=== PATIENT | female | born 1960 | race Caucasian/White ===

== ENCOUNTER 2018-12-10 20:44 | Inpatient (IN) ==
[2018-12-10] MEDS ORDERED: CARDIZEM IV ONE ×2 (21:11→21:23)
[2018-12-10] MEDS ORDERED: NS 500 ML IV ONE (21:17)
[2018-12-10] MEDS ORDERED: NS 500 ML ONE (21:19)
[2018-12-10 21:26] LABS: BASO# 0.04 X1000 (0.0-0.2); BASO% 0.4 % (0.0-0.8); EOS% 2.1 % (0.0-10.0); HEMATOCRIT 50.3 % (37.0-47.0); HEMOGLOBIN 16.6 g/dL (12.0-16.0); IMM GRAN# 0.03 X1000 (0.0-0.04); IMM GRAN% 0.3 % (0.0-0.5); LYMPH# 3.44 X1000 (1.2-3.4); LYMPH% 36.6 % (20.5-51.1); MCH 31.7 PG (27-31); MCV 96.2 FL (81-99); MONO# 0.77 X1000 (0.11-0.59); MONO% 8.2 % (1.7-9.3); MPV 10.3 FL (7.4-10.4); NEUT# 4.93 X1000 (1.4-6.5); NEUT% 52.4 % (42.2-75.2); PLT 273 X1000 (130-400); RBC 5.23 XMIL (4.2-5.4); RDW 13.4 % (11.5-14.5); WBC 9.41 X1000 (4.8-10.8)
[2018-12-10 21:34] LABS: INR 0.88; PROTIME 12.7 Seconds (11.0-16.0)
[2018-12-10 21:35] LABS: PTT 28.8 Seconds (22.3-41.8)
[2018-12-10 21:37] LABS: D-DIMER < 0.27 ug/mLFEU (0.0-0.52)
[2018-12-10] MEDS ORDERED: CARDIZEM 125 MG in NS 100 ML IV SCH (21:45)
--- NOTE | 2018-12-10 21:49 | Diag Imaging Result Doc PS360 ---
EXAM: CHEST-PORTABLE INDICATION: chest pain TECHNIQUE: One view COMPARISON: 12/01/2018 FINDINGS: The central vasculature is prominent indicating pulmonary venous congestion. This is very similar to the previous study. No well-defined airspace infiltrate is appreciated, otherwise. There is no discrete pleural fluid collection or pneumothorax. There is stable mild cardiomegaly. IMPRESSION: Mild cardiomegaly and suggestion of pulmonary venous congestion that is very similar to the previous study. Electronically signed by Omar Corral 12/10/2018 9:46 PM
[2018-12-10 21:57] LABS: AGAP 16; ALB/GLOB RATIO 1.4; ALBUMIN 4.2 g/dL (3.5-5.0); ALKALINE PHOSPHATASE 93 U/L (32-104); BUN 12 mg/dL (8-22); CALCIUM 9.2 mg/dL (8.8-10.2); CHLORIDE 101 mmol/L (98-107); COSMO 282; CREATININE 0.8 mg/dL (0.5-0.9); ESTIMATED GFR > 60; GLUCOSE 152 mg/dL (70-104); GOT 17 U/L (10-30); GPT 28 U/L (10-36); MAGNESIUM 1.5 mg/dL (1.5-2.7); POTASSIUM 4.1 mmol/L (3.5-5.1); SODIUM 140 mmol/L (136-145); TCO2 23 mmol/L (25-35); TOTAL BILIRUBIN 0.52 mg/dL (0.20-1.00); TOTAL PROTEIN 7.2 g/dL (6.3-8.3)
[2018-12-10 22:43] LABS: URINE SOURCE CLEAN CATCH
[2018-12-10 22:46] LABS: BILIRUBIN URINE NEGATIVE (NEGATIVE); BLOOD URINE NEGATIVE (NEGATIVE); COLOR YELLOW; GLUCOSE URINE NEGATIVE (NEGATIVE); KETONE URINE 10 mg/dL (NEGATIVE); LEUKOCYTES URINE SMALL (NEGATIVE); NITRITE URINE NEGATIVE (NEGATIVE); PROTEIN URINE NEGATIVE (NEGATIVE); TURBIDITY URINE CLEAR (CLEAR); UROBILINOGEN URINE NORMAL (NORMAL)
[2018-12-10 22:47] LABS: UR EPITHELIAL CELLS <10 /HPF (<10); URINE BACTERIA 4+ /HPF; URINE RBC <10 /HPF (<10)
--- NOTE | 2018-12-11 01:32 | PROVIDER DOCUMENTATION ---
This chart was entered by Apple Harvey Scribe, acting as scribe for Wayne Goff MD. HPI-Chest Pain - General Stated Complaint: AFIB Time Seen by Provider: 12/10/18 20:56 Source: patient Allergies/Adverse Reactions: Patient Allergies Allergy/AdvReac Type Severity Reaction Status Date / Time No Known Allergies Allergy Verified 12/01/18 15:16 Home Medications: Home Medication List Medication Instructions Recorded Confirmed Last Taken Type Atenolol 25 mg PO BID #60 tab 12/01/18 Unknown Rx - History of Present Illness-CP Nature of Presenting Problem: pt is a 58 yr old female presenting via EMS with complaint of sudden onset chest pain and palpitations. pt denies shortness of brearh, nausea or vomiting. pt reports recent dx as Afib, no current medications for that. pt denies CAD. Location: reports: central Chest Pain Radiation: reports: no radiation Quality of Pain: reports: tightness Severity in ED: moderate Onset/Duration: just prior to arrival Timing: improving Context/Activities at Onset: reports: recent emotional stress, eating Modifying Factors: improves with: rest (improved pain) Associated Symptoms: denies: nausea, shortness of breath Nitro Today/Relief: no nitro taken today Aspirin Treatment Today: no aspirin today Prior Chest Pain/Cardiac Workup: reports: no prior chest pain Similar Symptoms Previously?: No Recently Seen Here or By Another Healthcare Provider: No Review of Systems - Adult - REVIEW OF SYSTEMS - ADULT Constitutional: denies: fatique Eyes: denies: blurred vision, double vision Ears, Nose, Mouth & Throat: reports: no symptoms reported Cardiovascular: reports: chest pain, palpitations. denies: syncope Respiratory: denies: cough, shortness of breath Gastrointestinal: denies: abdominal pain, diarrhea, nausea, vomiting Genitourinary: reports: no symptoms reported Musculoskeletal: reports: no symptoms reported Integumentary: reports: no symptoms reported Neurological: reports: no symptoms reported Psychiatric: reports: no symptoms reported Endocrine: reports: no symptoms reported Hematologic/Lymphatic: reports: no symptoms reported Allergic/Immunologic: reports: no symptoms reported All Other Systems: Reviewed and Negative Past History - Adult - PAST MEDICAL HISTORY-ADULT Review of Records: reports: Old Records Reviewed, Nursing Assessment Review, Medications Reviewed, Social history reviewed & non-contributory. Major Childhood Illnesses: reports: denies history Cardiovascular: reports: denies history Respiratory: reports: denies history Gastrointestinal: reports: denies history Obstetrical/Gynecological: reports: denies history Genitourinary: reports: denies history Musculoskeletal: reports: denies history Neurological: reports: denies history Endocrine/Immune: reports: denies history Other Conditions: reports: denies history - IMMUNIZATION STATUS Childhood Immunizations: See Nurse Assessment Flu Vaccine: See Nurse Assessment - FAMILY HISTORY Family History: reviewed, not pertinent - SOCIAL HISTORY Smoking: cigarettes Provider spent 3-5 mins advising pt. on dangers of tobacco.: Discussed manners to quit use, and f/u contacts for add'l counseling. Substance Use: denies Living Situation: family Physical Exam-General - PHYSICAL EXAM-ADULT Initial Vital Signs Reviewed: Yes - CONSTITUTIONAL General Appearance: alert, other (mild discomfort) - EYES Eyes: PERRL/EOMI - HEAD, EARS, NOSE, MOUTH & THROAT HENMT: normocephalic/atraumatic, moist mucous membranes - NECK Neck: non-tender, full range of motion, supple, normal inspection - RESPIRATORY Respiratory: chest non-tender, lungs clear, no pleuratic chest pain, no respiratory distress, decreased breath sounds - CARDIOVASCULAR Cardiovascular: normal peripheral pulses, tachycardia, irregularly irregular - GASTROINTESTINAL (ABDOMEN) Abdominal Exam: normal bowel sounds, non tender, soft - LYMPHATIC Lymphatic: no adenopathy - MUSCULOSKELETAL Back Exam: normal inspection, no CVA tenderness, no vertebral tenderness Extremity: normal range of motion, non-tender, normal gait, normal inspection - SKIN Integumentary: normal color, normal turgor, warm/dry - NEUROLOGIC Neurologic: grossly normal, no motor/sensory deficits - PSYCHIATRIC Psych/Mental Status: normal mood/affect, normal thought content, normal thought process, oriented x 3 - HEART Score HEART Score: History: Slightly Suspicious HEART Score: ECG: Non-Specific Repolarization Disturbance/LBBB/PM HEART Score: Age: 45-65 Years HEART Score: Risk Factors for Atherosclerotic Disease: 1 or 2 Risk Factors HEART Score: Troponin: < or = Normal Limit Total HEART Score:: 3 Progress - PLAN OF CARE/RESULTS Progress/Plan/Lab Results: Vital Signs - 8 hr 12/10/18 21:27 12/10/18 21:30 12/10/18 21:40 Temperature 97.7 F Pulse Rate 168 H 83 124 H Respiratory Rate 25 H 22 22 Blood Pressure 121/91 O2 Sat by Pulse Oximetry 93 L 94 L 98 12/10/18 21:50 12/10/18 22:00 12/10/18 22:10 Temperature Pulse Rate 123 H 152 H 150 H Respiratory Rate 20 25 H 20 Blood Pressure O2 Sat by Pulse Oximetry 98 97 96 12/10/18 22:20 12/10/18 22:30 12/10/18 22:40 Temperature Pulse Rate 146 H 79 78 Respiratory Rate 18 23 20 Blood Pressure 148/67 O2 Sat by Pulse Oximetry 96 98 96 12/11/18 00:02 Temperature 98.0 F Pulse Rate 73 Respiratory Rate 16 Blood Pressure 148/67 O2 Sat by Pulse Oximetry 97 Laboratory Results - last 24 hr 12/10/18 12/10/18 12/10/18 21:12 21:12 21:12 WBC RBC Hgb Hct MCV MCH MCHC RDW Std Deviation Plt Count MPV Immature Gran % (Auto) Neut % (Auto) Lymph % (Auto) [place] % (Auto) Eos % (Auto) Baso % (Auto) Immature Gran # (Auto) Neut # (Auto) Lymph # (Auto) [place] # (Auto) Eos # (Auto) Baso # (Auto) PT 12.7 INR 0.88 PTT (Actin FS) 28.8 D-Dimer, Quantitative < 0.27 Sodium 140 Potassium 4.1 Chloride 101 Carbon Dioxide 23 L Anion Gap 16 BUN 12 Creatinine 0.8 Estimated GFR/1.73 m2 > 60 BUN/Creatinine Ratio 15 Glucose 152 H Calculated Osmolality 282 Calcium 9.2 Magnesium 1.5 Total Bilirubin 0.52 AST 17 ALT 28 Alkaline Phosphatase 93 Creatine Kinase Troponin T Sog-Q-Ffcncuvezxi Pept 395 H Total Protein 7.2 Albumin 4.2 Globulin 3.0 Albumin/Globulin Ratio 1.4 Urine Source Urine Color Urine Turbidity Urine pH Ur Specific [place] Urine Protein Ur Glucose (Stick) Ur Ketones (Stick) Urine Blood Urine Nitrite Urine Bilirubin Urobilinogen Dipstick Urine Leukocytes Urine WBC (Auto) Urine RBC (Auto) U Epithel Cells (Auto) Urine Bacteria (Auto) 12/10/18 12/10/18 12/10/18 21:12 21:12 21:12 WBC 9.41 RBC 5.23 Hgb 16.6 H Hct 50.3 H MCV 96.2 MCH 31.7 H MCHC 33.0 RDW Std Deviation 13.4 Plt Count 273 MPV 10.3 Immature Gran % (Auto) 0.3 Neut % (Auto) 52.4 Lymph % (Auto) 36.6 [place] % (Auto) 8.2 Eos % (Auto) 2.1 Baso % (Auto) 0.4 Immature Gran # (Auto) 0.03 Neut # (Auto) 4.93 Lymph # (Auto) 3.44 H [place] # (Auto) 0.77 H Eos # (Auto) 0.20 Baso # (Auto) 0.04 PT INR PTT (Actin FS) D-Dimer, Quantitative Sodium Potassium Chloride Carbon Dioxide Anion Gap BUN Creatinine Estimated GFR/1.73 m2 BUN/Creatinine Ratio Glucose Calculated Osmolality Calcium Magnesium Total Bilirubin AST ALT Alkaline Phosphatase Creatine Kinase 81 Troponin T < 0.010 Evs-C-Bledydlqtfk Pept Total Protein Albumin Globulin Albumin/Globulin Ratio Urine Source Urine Color Urine Turbidity Urine pH Ur Specific [place] Urine Protein Ur Glucose (Stick) Ur Ketones (Stick) Urine Blood Urine Nitrite Urine Bilirubin Urobilinogen Dipstick Urine Leukocytes Urine WBC (Auto) Urine RBC (Auto) U Epithel Cells (Auto) Urine Bacteria (Auto) 12/10/18 22:35 WBC RBC Hgb Hct MCV MCH MCHC RDW Std Deviation Plt Count MPV Immature Gran % (Auto) Neut % (Auto) Lymph % (Auto) [place] % (Auto) Eos % (Auto) Baso % (Auto) Immature Gran # (Auto) Neut # (Auto) Lymph # (Auto) [place] # (Auto) Eos # (Auto) Baso # (Auto) PT INR PTT (Actin FS) D-Dimer, Quantitative Sodium Potassium Chloride Carbon Dioxide Anion Gap BUN Creatinine Estimated GFR/1.73 m2 BUN/Creatinine Ratio Glucose Calculated Osmolality Calcium Magnesium Total Bilirubin AST ALT Alkaline Phosphatase Creatine Kinase Troponin T Zlm-C-Zknhatrujep Pept Total Protein Albumin Globulin Albumin/Globulin Ratio Urine Source CLEAN CATCH Urine Color YELLOW Urine Turbidity CLEAR Urine pH 6.0 Ur Specific [place] 1.000 Urine Protein NEGATIVE Ur Glucose (Stick) NEGATIVE Ur Ketones (Stick) 10 A Urine Blood NEGATIVE Urine Nitrite NEGATIVE Urine Bilirubin NEGATIVE Urobilinogen Dipstick NORMAL Urine Leukocytes SMALL A Urine WBC (Auto) 10-20 A Urine RBC (Auto) <10 U Epithel Cells (Auto) <10 Urine Bacteria (Auto) 4+ Orders Category Date Time Status CHEST-PORTABLE [RAD] Stat Exams 12/10/18 21:15 Completed CBC WITH ELECTRONIC DIFF [HEME] Stat Lab 12/10/18 21:12 Completed CK PROFILE [SP CHEM] Stat Lab 12/10/18 21:12 Completed COMPREHENSIVE METABOLIC PANEL [CHEM] Stat Lab 12/10/18 21:12 Completed D-DIMER [COAG] Stat Lab 12/10/18 21:12 Completed MAGNESIUM [CHEM] Stat Lab 12/10/18 21:12 Completed PRO B-NATRIURETIC PEPTIDE Stat Lab 12/10/18 21:12 Completed PT [PROTIME WITH INR] [COAG] Stat Lab 12/10/18 21:12 Completed PTT [COAG] Stat Lab 12/10/18 21:12 Completed TROPONIN T Stat Lab 12/10/18 21:12 Completed URINALYSIS W/POSS RFLX CULT [URINALYSIS] Stat Lab 12/10/18 22:35 Completed URINE CULTURE [RM] Routine Lab 12/11/18 00:25 Received 0.9% Sodium Chloride Inj [Ns] 100 ml Med 12/10/18 21:45 Active Diltiazem [Cardizem] 125 mg IV As Directed mls/hr 0.9% Sodium Chloride Inj [Ns] 500 ml Med 12/10/18 21:19 Discontinued .ROUTE As directed 0.9% Sodium Chloride Inj [Ns] 500 ml Med 12/10/18 21:17 Discontinued IV 999 mls/hr Diltiazem [Cardizem] Med 12/10/18 21:11 Discontinued 10 mg IV NOW ONE Diltiazem [Cardizem] Med 12/10/18 21:23 Discontinued 10 mg IV NOW ONE Transfer/Admit Order [TRANSFER] Routine Transfer 12/11/18 00:29 Ordered Result Diagrams: 12/10/18 21:12 12/10/18 21:12 - EKG 1 Time of EKG reading by physician:: 20:58 EKG Read and Signed by:: Wayne Goff EKG Interpretation (*Must complete 3 of following elements*): Abnormal (septal infarct-age undetermined marked st abnormality, possible inferior subendocardial injury) Rate: 162 Rhythm: afib with rvr [place]: normal QRS: normal LA Interval: normal ST Wave: non-specific ST changes 2 Time of EKG reading by physician:: 22:35 EKG Read and Signed by:: Wayne Goff EKG Interpretation (*Must complete 3 of following elements*): Abnormal (poss LAE, septal infarct-age undetermined) Rate: 82 Rhythm: nsr [place]: normal QRS: normal LA Interval: normal ST Wave: normal - CONSULTS/PCP/HOSPITALIST Notification #1 *Consult/PCP/Hospitalist*: Dr. Lim Time Discussed: 12:50 Consult Disposition: Admit Departure - Departure Date of Disposition Decision: 12/11/18 Time of Disposition Decision: 12:50 DIAGNOSIS: Atrial fibrillation with rapid ventricular response Chest pain Qualifiers: Chest pain type: unspecified Qualified Code(s): R07.9 - Chest pain, unspecified Disposition: ADMITTED INPATIENT 09 Certified Medical Emergency: Emergent Condition: Serious Referrals and Follow-Ups: None,PCP [Primary Care Provider] - - Critical Care Note This patient required my direct & personal management of CC.: No Attestation - Physician/ SCOTT Attestation The physician spent face to face time with patient:: Yes Advanced Practice Provider documentation review:: Supervising physician onsite and consulted in the evaluation and care of this patient. The physician did have a face to face encounter with the patient. This chart was documented by the indicated scribe, (Apple Harvey Scribe) and accurately reflects the services I performed and decisions made by [place] shaikh Kofi X., MD, as attested by the provider's signature.
[2018-12-11] MEDS ORDERED: CARDIZEM PO ONE (01:37)
[2018-12-11] MEDS ORDERED: LASIX IV ONE (01:50)
[2018-12-11] MEDS ORDERED: ROCEPHIN 1 GM in NS 50 ML IV SCH (01:50)
[2018-12-11] MEDS ORDERED: ZOFRAN IV PRN (01:50)
[2018-12-11] MEDS ORDERED: TYLENOL PO PRN (01:50)
[2018-12-11 02:39] LABS: HEMOGLOBIN A1C 5.5 % (4.8-6.0)
[2018-12-11] MEDS: CARDIZEM PO SCH ×4 (03:00→23:19)
--- NOTE | 2018-12-11 03:26 | HISTORY AND PHYSICAL ---
PRIMARY CARE PHYSICIAN: None. REASON FOR ADMISSION: Chest pain with palpitations today. HISTORY OF PRESENT ILLNESS: Ms. Alexa Dobson is a 58-year-old woman with past medical history of hypertension; she comes in today after experiencing a third episode of chest pain and palpitations. She said that since mid November, she has had 2 other episodes. The first episode occurred while she was at work, a sharp chest tightness with subsequent palpitations, diaphoresis and nausea, which required her bring brought into our ER. She was given IV Cardizem, which in less than 15 minutes reverted her back to what she says was "a normal rhythm", and she was sent back home that evening. The following week, she had another episode but this time she was awakened from sleep. She was diaphoretic and had palpitations and chest pain. EMS came by to give her adenosine twice and by the time she got to the hospital, she was back in normal rhythm. She was observed for a few hours and sent home. On this occasion, she was walking and developed chest tightness and then stopped walking and tried to catch her breath by taking some deep breaths, and then subsequently developed immediate palpitations that made her light-headed, diaphoretic and nauseous. On arrival to the ER, her heart rate was in the 160 to 180 range. She was given 20 mg of IV Cardizem and now she is back in normal sinus rhythm at 70 beats per minute. The patient says the chest tightness and feeling of nausea has resolved at this point in time. She denies any antecedent leg swelling, PND or orthopnea. No cough, fever or chills. No over-the- counter medication use or herbal remedies. REVIEW OF SYSTEMS: No GI or complaints. No heat intolerance. No weight loss. ALLERGIES: No known allergies. SOCIAL HISTORY: She smokes about 1 pack a day. No immediate plans to quit. She does not drink or use illicit drugs. I did not ask her about her caffeine ingestion. She lives alone. SURGICAL HISTORY: She has had a D C but no other surgical history. FAMILY HISTORY: Only notable for type 2 diabetes mellitus. No heart disease in first-degree relatives. LABORATORY DATA: White count 9000, hemoglobin 16, hematocrit 50, platelets 273, normal differential. BUN 12, creatinine 0.8, glucose 152. Troponin is negative. ProBNP 295. PT and PTT are normal. Urinalysis shows 4+ bacteria with 10-20 white cells, small leukocytes. Chest x-ray did show mild cardiomegaly with pulmonary vascular congestion. EKG on arrival showed A-fib with rate of 162, ST depression in lateral leads and Q waves in septal leads. Post Cardizem EKG showed normal sinus rhythm with the same septal Q waves in V1 and V2. PHYSICAL EXAMINATION: VITAL SIGNS: Blood pressure 140/67, heart rate 72, respiratory rate 16, temperature 98 degrees, oxygen saturation 97% on 2 liters. GENERAL: Obese, middle-aged woman who is alert and oriented to person, place and time with normal mood and affect. HEENT: Head is normocephalic, atraumatic. Eyes: PERRL. EOMI. He is anicteric, not pale. ENT: Oropharynx exam is grossly normal. NECK: Supple. No JVD, carotid bruits, or thyromegaly. CHEST: She has bibasilar crepitations with decreased breath sounds in the bases. CARDIOVASCULAR: First and second heart sounds heard. No gallops, murmurs or rubs. Rhythm is regular. ABDOMEN: Protuberant, soft, with no tenderness. No masses or organomegaly. Bowel sounds are normal. RECTAL EXAM: Deferred at this time. EXTREMITIES: No edema, clubbing or cyanosis. Distal pulses are 1+, symmetrical, regular. NEUROLOGIC: No gross focal deficits appreciated. No tremors. SKIN: Intact with no breakdown. MUSCULOSKELETAL: Grossly normal. ASSESSMENT: 1. Congestive heart failure, type unknown. 2. Atrial fibrillation with rapid ventricular rate. Her [id number] score is greater than 2 or more. 3. Hypertensive heart disease. 4. Hyperglycemia. Rule out type 2 diabetes. 5. Urinary tract infection. PLAN: The patient will be admitted and started on for now p.o. Cardizem for rate control, short acting and probably transition to long-acting Cardizem. Consult Cardiology to see the patient. Echocardiogram will be ordered and per Cardiology, if they want to do further workup to rule out ischemic etiology for this. Serial enzymes have been ordered. Because of patient's [id number] score being 2 or more, I have taken the liberty of starting the patient on Xarelto. Check TSH level. The patient does have evidence of hyperglycemia and a strong family history of type 2 diabetes mellitus. Hemoglobin A1C has been ordered. Lipid panel also has been ordered. Start patient on Rocephin for 3 days and follow cultures. cc: Jamie Lim MD
--- NOTE | 2018-12-11 08:35 | EKG Report ---
Test Performed on : 12/10/2018 8:58:21 PM Test Reason : ED. NO EKG ORDER FOR MUSE Blood Pressure : / mmHG Vent. Rate : 162 BPM Atrial Rate : 174 BPM P-R Int : 000 ms QRS Dur : 076 ms QT Int : 294 ms P-R-T Axes : 000 -17 099 degrees QTc Int : 482 ms Atrial fibrillation. with rapid ventricular response. Septal infarct (cited on or before 17-NOV-2018) Marked ST abnormality, possible inferior subendocardial injury Abnormal ECG When compared with ECG of 01-DEC-2018 14:57, (Unconfirmed) No significant change was found Unconfirmed Result
[2018-12-11 09:21] LABS: BASO# 0.02 X1000 (0.0-0.2); BASO% 0.3 % (0.0-0.8); EOS# 0.08 X1000 (0.0-0.7); HEMATOCRIT 49.9 % (37.0-47.0); LYMPH# 2.35 X1000 (1.2-3.4); LYMPH% 29.7 % (20.5-51.1); MCH 31.1 PG (27-31); MCHC 32.1 g/dL (33-37); MCV 97.1 FL (81-99); MONO# 0.45 X1000 (0.11-0.59); MONO% 5.7 % (1.7-9.3); MPV 10.4 FL (7.4-10.4); NEUT# 5.01 X1000 (1.4-6.5); NEUT% 63.3 % (42.2-75.2); PLT 221 X1000 (130-400); RBC 5.14 XMIL (4.2-5.4); RDW 13.7 % (11.5-14.5); WBC 7.91 X1000 (4.8-10.8)
--- NOTE | 2018-12-11 09:22 | EKG Report ---
Test Performed on : 12/10/2018 10:30:45 PM Test Reason : ED. NO EKG ORDER FOR MUSE Blood Pressure : / mmHG Vent. Rate : 082 BPM Atrial Rate : 082 BPM P-R Int : 148 ms QRS Dur : 076 ms QT Int : 398 ms P-R-T Axes : 055 003 098 degrees QTc Int : 464 ms Normal sinus rhythm. Possible Left atrial enlargement Septal infarct (cited on or before 17-NOV-2018) Abnormal ECG When compared with ECG of 10-DEC-2018 20:58, (Unconfirmed) Sinus rhythm. has replaced Atrial fibrillation. Vent. rate has decreased BY [address] no longer depressed in Inferior leads ST no longer depressed in Anterolateral leads Unconfirmed Result
[2018-12-11 09:58] LABS: CHOLESTEROL 163 mg/dL (0-200); HDL 47 mg/dL (45-65); LDL 94 mg/dL; TRIGLYCERIDES 110 mg/dL (35-135); VLDL 22 mg/dL
[2018-12-11] MEDS: XARELTO PO SCH (10:45)
--- NOTE | 2018-12-11 11:20 | PROGRESS NOTE ---
DATE: 12/11/2018 INTERVAL HISTORY: Ms. Dobson was admitted overnight for paroxysmal atrial fibrillation. However, her heart rate had come under control after intravenous diltiazem, and she was started on p.o. diltiazem. Echocardiogram was done, result is pending. SUBJECTIVE: Patient denies chest pain, shortness of breath, palpitation. She is an active smoker. She has also been started on ceftriaxone for suspected UTI and rivaroxaban for primary seizure prophylaxis currently. OBJECTIVE: Vitals: Temperature of 98, pulse of 73, respiratory rate 18, blood pressure 147/71, saturating 96% on 2 L nasal cannula. General: Does not appear in any acute distress. HEENT: Oral cavity is moist. No pallor, cyanosis, clubbing, or icterus. Lungs: Air entry bilaterally diminished without wheeze, rhonchi, or crackles. Cardiovascular: S1, S2 normal. Regular. No murmur, rub, or gallop. Abdomen: Soft, nontender. No jugular venous distention. Extremities: No lower extremity edema. LABORATORIES: CBC and BMP have been unremarkable except magnesium of 1.7. Her troponins have shown to be 0.026 in the morning time. IMAGING/DIAGNOSTIC DATA: Chest x-ray on admission had mild cardiomegaly suggestive of pulmonary venous congestion similar to previous study. EKG had normal sins rhythm. She did have Q-waves in lead 3. On admission EKG when she had atrial fibrillation with rapid ventricular rate, she has significant lateral and inferior ST-segment depressions. ASSESSMENT AND PLAN: 1. Atrial fibrillation with rapid ventricular rate. Continue p.o. diltiazem. Follow up with echocardiogram result. Her ProBNP was only mildly elevated. CHADS2-VASc score is close to 3 for HTN, CHF and gender. Continue Xarelto which has been started. I discussed benefits vs risk with the patient and she is in agreement. 2. Tobacco abuse. Patient was counseled about smoking cessation. If needed, I will start her on nicotine patch. 3. Suspected acute congestive heart failure. Continue patient on Lasix considering chest x-ray findings plus mild elevation of brain natriuretic peptide. Follow up with echocardiogram results. 4. Pyuria. The patient denies any urinary tract infection related symptoms to me. I will consider discontinuing antibiotics. Plan of care discussed with the patient. All of her questions have been answered. I will transfer patient to routine medical floor instead of [facility]. cc: Dhaval Kirkland MD MTDD
--- NOTE | 2018-12-11 11:29 | EKG Report ---
Test Performed on : 12/11/2018 11:24:49 AM Test Reason : afib Blood Pressure : / mmHG Vent. Rate : 073 BPM Atrial Rate : 073 BPM P-R Int : 152 ms QRS Dur : 074 ms QT Int : 410 ms P-R-T Axes : 057 010 097 degrees QTc Int : 451 ms Normal sinus rhythm. Possible Left atrial enlargement Septal infarct (cited on or before 17-NOV-2018) T wave abnormality, consider lateral ischemia Abnormal ECG When compared with ECG of 10-DEC-2018 22:30, (Unconfirmed) T wave inversion more evident in Lateral leads Unconfirmed Result
[2018-12-11] MEDS: LOPRESSOR PO SCH ×2 (14:55→23:19)
[2018-12-11] MEDS: LASIX IV SCH ×2 (14:58→23:19)
--- NOTE | 2018-12-11 16:12 | ECHO REPORT ---
ORDER DATE: 12/11/2018 INDICATION: Atrial fibrillation. FINDINGS: 1. Right atrium appears normal in size at 3.8 cm. 2. Mild tricuspid regurgitation. 3. Normal RV size and systolic function. 4. Mild pulmonic insufficiency. 5. Normal left atrial size with a dimension of 3.5 cm. 6. No mitral prolapse. Trace mitral regurgitation. 7. Normal LV size, end-diastolic dimension of 4.4 cm. Mild to moderate left ventricular hypertrophy with a posterior and interventricular septal wall thickness 1.4 cm each. Normal LV systolic function. Calculated ejection fraction of 68% with normal wall motion. 8. The aortic valve opens well. No evidence of stenosis or insufficiency. 9. The aorta appears normal in visualized segments. 10. No pericardial effusion seen. 11. Patient appears to be in sinus rhythm during the course of the study. cc: MD Jamie John MD
--- NOTE | 2018-12-11 16:19 | Diag Imaging Result Doc PS360 ---
EXAM: CHEST-2 VIEWS 12/11/2018 HISTORY: CHF TECHNIQUE: PA and lateral COMMENT: The inspiration is better than on 12/10/2018. The lungs are clearer. IMPRESSION: Improved pulmonary edema. Electronically signed by Michael Padron 12/11/2018 4:16 PM
--- NOTE | 2018-12-11 20:32 | CARDIOLOGY CONSULTATION ---
DATE: 12/11/2018 REQUESTED BY: Hospitalist Service. INDICATION: Palpitations, persistent atrial fibrillation. HISTORY: Ms. 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 She stated that for the past 3 weeks or so she has had at least 3 episodes of sudden onset of palpitations. She has presented to the ER on November 17 and again on December 01 because of palpitations. At that time, electrocardiogram on November 17 showed atrial fibrillation with rapid response. They succeeded in converting this to sinus rhythm, and she went home. On December 01, similar situation was found. She was in rapid atrial fibrillation and she converted to sinus rhythm. In fact, they had a nice EKG showing the conversion. The patient was supposed to follow up with a chemistry instructor, but first she needed to make an appointment to see Dr. Angeles. Last night, she was going to work on December 10. She developed palpitations and they will not get any better. She was seen in the ER. They gave her Cardizem. EKG done at 8:58 p.m. showed the atrial fibrillation with rapid response and diffuse ST-T abnormality in the lateral leads with ST elevation in AVR. The patient subsequently has converted at 11:24 in the morning to sinus rhythm and her EKG shows diffuse T-wave abnormality in lateral leads. Her troponin levels have changed from 0.010 to 0.018, and then 0.026. She reported having some heaviness at the time of the palpitations. She is feeling better now, but not completely back to 100%. Her past history is really negative. She has been for the most part in good health. Of note, yesterday her blood pressure was 161/87 at some point and then on November 17 when she was seen in the ER was 188/90. The patient was not aware of having hypertension. SURGICAL HISTORY: She has had a D&C in the past. SOCIAL HISTORY: She is . She has been working at [employer] night shifts for 7 years and before that, she worked night shifts at a previous location. She has been a smoker of half a pack of cigarettes a day for many years. She has 2 daughters ages 40 and 37. She lives by herself. FAMILY HISTORY: Mother suffered diabetes and with colon cancer. A sister has cholelithiasis. ALLERGIES: She is not allergic to any medication. HOME MEDICATIONS: Her home medicines, she is really not taking any home medication. REVIEW OF SYSTEMS: The patient has been really doing for the most part, well. She has difficulty sleeping, she only catches about 6 hours of sleep at night. She has gained weight. Her body mass index is 33.9. She could have a sleep apnea syndrome. Otherwise, no issues besides the 3 bouts of palpitations on ER presentation. PHYSICAL EXAMINATION: Vital Signs: Blood pressure right now she has converted and her vital signs showed a blood pressure of 124/53, temperature 97.3, pulse 56, respirations 25. General: She is awake, alert, in no distress. HEENT: Unremarkable. Chest: Clear to auscultation and percussion. Heart: Heart sounds regular and rhythmic. No gallop or murmur. Abdomen: Obese, nontender. No masses. No hepatomegaly. Extremities: Show good pulses. No peripheral edema. Neurologic: Nonfocal. Moves 4 extremities. IMPRESSION: 1. Patient who presented with chest discomfort and atrial fibrillation rapid response. Abnormal ECG suggestive of subendocardial ischemia. Troponin levels have risen a little bit, although they are not diagnostic for ischemia. Her resting ECG after conversion is abnormal. 2. Obesity. 3. Possible sleep apnea syndrome. 4. Tobacco user. 5. Elevated blood pressure. Probably a case of hypertension. RECOMMENDATION: At this time I have reviewed her echocardiogram. Her ejection fraction is normal. I will suggest to do a myocardial perfusion stress test using a walking Lexiscan protocol in the morning. Based on the results, we will advise her to continue with a beta-bri regimen plus Xarelto and we will follow her at the office. I would suggest to make a referral for sleep studies. Thank you again for the opportunity to participate in her evaluation. cc: Anatoliy Santiago MD [facility]
[2018-12-12] MEDS: LASIX IV SCH ×2 (03:20→14:59)
[2018-12-12] MEDS: LOPRESSOR PO SCH ×7 (04:24→21:33)
[2018-12-12] MEDS: CARDIZEM PO SCH ×3 (04:31→15:59)
[2018-12-12] MEDS ORDERED: LEXISCAN ONE (08:58)
[2018-12-12] MEDS: XARELTO PO SCH ×2 (10:48→10:51)
--- NOTE | 2018-12-12 15:14 | PROGRESS NOTE ---
DATE: 12/12/2018 INTERVAL HISTORY: The patient remains in atrial fibrillation and now rate controlled. Chest pain resolved. No acute events overnight. No new complaints. Denies chest pain, dyspnea, or palpitations. REVIEW OF SYSTEMS: Twelve point review of systems negative except as per interval history. VITAL SIGNS: T-max 98.4 degrees, pulse 72, respirations 22, blood pressure 136/90, O2 saturation 97% on room air. PHYSICAL EXAMINATION: General: No acute distress. Vital Signs: As above. HEENT: Normocephalic, atraumatic. Moist mucous membranes. No cervical adenopathy. Cardiovascular: Irregular rhythm with normal rate. No murmurs noted. Lungs: Largely clear to auscultation bilaterally. No wheezing, rales, or rhonchi noted. Abdomen: Soft, nontender, nondistended. Bowel sounds positive. Extremities: Peripheral pulses intact. No clubbing, cyanosis, or edema. Neurologic: Cranial nerves grossly intact. No focal deficits identified. Psychiatric: Normal mood and affect. Awake, alert, oriented x3. Skin: No new rashes or lesions identified. ASSESSMENT AND PLAN: 1. Atrial fibrillation with rapid ventricular response. Remains rate controlled on diltiazem. Echocardiogram showing normal ejection fraction and no major valvular issues. Continue Xarelto for stroke prophylaxis. Cardiology considering cardioversion. If they elect not to cardiovert, then patient can likely be discharged. 2. Possible acute diastolic congestive heart failure. Patient with mild elevation in B-type natriuretic peptide. Some cardiomegaly and pulmonary venous congestion on initial chest x- ray, although it had not really changed from previous. Chest x-ray did appear to improve with Lasix administration. Echocardiogram shows a normal ejection fraction but may have some mild diastolic heart failure. We will continue intravenous Lasix one more day and then likely discontinue in the morning. 3. Tobacco abuse. Patient counseled on smoking cessation. Patient denied need for a nicotine patch. 4. Asymptomatic bacteriuria. Patient with minimal white cells on urinalysis but no urinary symptoms at all. No fever. No leukocytosis. We will continue to monitor off of antibiotics. 5. Obesity. Patient counseled on diet and exercise. 6. Deep vein thrombosis prophylaxis with Xarelto. 7. Disposition. Likely discharge home tomorrow or Sunday depending on cardiology recommendations and response to possible cardioversion.
--- NOTE | 2018-12-12 20:01 | Diag Imaging Result Document ---
PROCEDURE NAME: MYOCARDIAL PERF SCAN, STR/REST - 12/11/2018 INDICATION: The patient presented with paroxysmal atrial fibrillation, chest discomfort, minimal elevation of troponin level. Coronary heart disease is being evaluated. DESCRIPTION: The patient came in to the nuclear lab for rest images on December 11. She received a rest injection of technetium 99 sestamibi 42.5 mCi. Multiple views of the heart were obtained at rest. Subsequently the patient underwent a walking Lexiscan protocol, and 0.4 mg of Lexiscan were infused. At peak injection he was injected with technetium 99 sestamibi 40.9 mCi. Multiple tomographic views of the heart were obtained following the completion of the exercise protocol. The stress test was done on December 12. SUMMARY OF THE ELECTROCARDIOGRAPHIC PORTION OF THE STUDY: Resting ECG showed sinus rhythm, rate 64 beats per minute, resting blood pressure 135/82. Resting ECG showed nonspecific T-wave flattening. During the protocol the heart rate increased to 100 beats per minute. Blood pressure went up to 162/74. The patient reported no chest pain, shortness of breath or palpitations. The ECG showed no significant changes. Following the completion of the test, heart rate and blood pressure returned back to baseline. In summary, electrocardiographic response to a walking Lexiscan protocol is normal. SUMMARY OF THE MYOCARDIAL PERFUSION PORTION OF THE STUDY: Poststress tomographic views of the left ventricle showed normal homogeneous distribution of radiotracer throughout the entire length of the myocardium. There was no evidence of any poststress defect. The rest images showed normal perfusion. The polar plots revealed the same. No evidence of any inducible ischemia. No myocardial scar. Gated SPECT on the rest images showed an ejection fraction of 79%. The poststress ejection fraction was 70%. This test was done on 2 separate days. Using the myometrix protocol, the poststress ejection fraction was 76%. The rest ejection fraction was 87%. No wall motion abnormality noted. Ventricular volumes are normal. Lung/heart ratio is normal at 0.32 and 0.37 on the stress and rest images. The TID is normal at 0.960. SUMMARY: This study shows: 1. Normal electrocardiographic response to a walking Lexiscan protocol. 2. Normal poststress myocardial perfusion scan. There is no scintigraphic evidence of pharmacologically induced myocardial ischemia. 3. Normal left ventricular systolic function. Ejection fraction estimated at 70% on the poststress images. Clinical correlation recommended. cc: MD Yuliana Trinidad PA MTDD
[2018-12-13] MEDS: LASIX IV SCH ×2 (00:58→14:10)
--- NOTE | 2018-12-13 07:26 | CARDIOLOGY PROGRESS NOTE ---
DATE: 12/12/2018 CHIEF COMPLAINT: Irregular heart beat and chest tightness. SUBJECTIVE: Ms. Dobson is feeling better. She has finished her stress test. She has no complaints. OBJECTIVE: Vital Signs: Blood pressure is 136/61, temperature is 98 degrees, pulse 55, and respirations 14. General: She is awake, alert, and oriented, in no distress. HEENT: Unremarkable. Chest: Clear to auscultation and percussion. Heart: Sounds regular and rhythmic. No gallop or murmur. Abdomen: Nontender. Extremities: Show no edema. Neurologic: Follows commands. Moves all four extremities. BLOOD WORK: Her hemoglobin A1c is 5.5%. Her cholesterol is 163. HDL is 47. LDL 94. Triglycerides are 110. Her myocardial perfusion stress test done today using walking Lexiscan protocol was normal. Her echocardiogram done yesterday was essentially unremarkable. IMPRESSION: 1. Paroxysmal atrial fibrillation. 2. Obesity. 3. Bacteriuria, gram-negative rods. 4. Tobacco user. 5. Suspected sleep apnea syndrome. RECOMMENDATIONS: From a cardiology viewpoint the patient may be discharged. She needs to be referred for a sleep study as an outpatient. We will be very happy to follow her at the office in about a month from now. I will suggest to send her home on a combination of low-dose diltiazem and low-dose beta bri. I will suggest metoprolol XL 100 mg daily and Cardizem CD 120 mg daily. She also probably needs to go home on a long-term anticoagulant like Xarelto. Thank you again for the opportunity to participate in evaluation. cc: Anatoliy Santiago MD
[2018-12-13] MEDS: XARELTO PO SCH (08:07)
[2018-12-13] MEDS ORDERED: TOPROL XL PO SCH (09:00)
[2018-12-13] MEDS ORDERED: CARDIZEM CD PO SCH (09:00)
[2018-12-13 16:45] VITALS: BP 134/97
--- NOTE | 2018-12-13 18:27 | DISCHARGE SUMMARY ---
ADMISSION DATE: 12/11/2018 DISCHARGE DATE: DISCHARGE DIAGNOSIS: 1. Atrial fibrillation with rapid ventricular response. 2. Diastolic heart failure with some pulmonary edema. 3. Tobacco abuse. 4. Asymptomatic bacteruria. 5. Obesity. CONSULTATIONS: Dr. Santiago, cardiology. PROCEDURES: None. Echocardiogram from 12/11 showed an EF of 68%, some left ventricular hypertrophy. No clear documentation of diastolic dysfunction but she did have left ventricular hypertrophy. Stress test showed no significant ischemic changes. EF was 70%. Patient came in with atrial fibrillation with rapid ventricular response admitted by Dr. Lim. Also had heart failure. She was placed on Cardizem and she was anticoagulated with Xarelto because of her CHADS2-VASc score being greater than equal to 3. She went an ischemic cardio workup which was negative. Her atrial fibrillation was controlled. UTI was felt to be negative. She did have E coli it was greater than 100,000 but she did not receive any antibiotics and she was asymptomatic. Overall she clinically improved, was rate controlled on the day of discharge, heart rate was 65, respiratory rate 20, blood pressure 144/64. There was no significant issues. Dr. Stinson had seen her on the and recommended discharge on metoprolol, Cardizem and Xarelto which we will do. She is breathing comfortably on room air, saturations of 95%. DISCHARGE MEDICATIONS: Cardizem CD 120 daily, Toprol-XL 100 daily, Xarelto 20 daily. FOLLOWUP: [facility] to 6 weeks, Dr. Santiago and her PCP in 1 to 2 weeks. TIME SPENT: 32 minutes. cc: Apolinar Staples MD
== END 2018-12-13 18:49 | disposition home or self-care (01) | DRG 308 ==
LOC: ED 20:44 → EDIPHOLD 12-11 01:56 → SUATTDRO 12-11 01:56 → 3N 12-11 14:10
PROVIDERS: ATTEND Internal Medicine
CPT/HCPCS: 71010; 71020; 71045; 71046; 78452; 80053; 80061; 81001; 82550; 83036; 83735; 83880; 84443; 84484; 85025; 85379; 85610; 85730; 87077; 87088; 87186; 93005; 93017; 93306; 96365; 96375; 99285; A9270; A9500; C8929; J0696; J1940; J2785; J7040; Q9957

== ENCOUNTER 2019-03-17 13:19 | Inpatient (IN) ==
[2019-03-17] MEDS ORDERED: CARDIZEM IV ONE (13:27)
[2019-03-17] MEDS: CARDIZEM 125/NS 125 MG/125 ML IVPB IV SCH ×3 (13:45→22:29)
--- NOTE | 2019-03-17 13:53 | Diag Imaging Result Doc PS360 ---
CHEST-1 VIEW - 03/17/2019 INDICATION: chest pain COMPARISON: 12/11/2018 FINDINGS: There is cardiomegaly and moderate pulmonary vascular congestion. No significant infiltrates. No pneumothorax or pleural effusion. IMPRESSION: Stable cardiomegaly and pulmonary vascular congestion. Electronically signed by Edilberto Winter 03/17/2019 1:50 PM
[2019-03-17 14:02] LABS: BASO# 0.03 X1000 (0.0-0.2); BASO% 0.3 % (0.0-0.8); EOS# 0.17 X1000 (0.0-0.7); HEMATOCRIT 48.9 % (37.0-47.0); HEMOGLOBIN 16.4 g/dL (12.0-16.0); IMM GRAN# 0.02 X1000 (0.0-0.04); IMM GRAN% 0.2 % (0.0-0.5); LYMPH# 1.97 X1000 (1.2-3.4); LYMPH% 22.9 % (20.5-51.1); MCHC 33.5 g/dL (33-37); MCV 95.3 FL (81-99); MONO# 0.71 X1000 (0.11-0.59); MONO% 8.2 % (1.7-9.3); NEUT# 5.71 X1000 (1.4-6.5); NEUT% 66.4 % (42.2-75.2); PLT 227 X1000 (130-400); RBC 5.13 XMIL (4.2-5.4); RDW 14.2 % (11.5-14.5); WBC 8.61 X1000 (4.8-10.8)
[2019-03-17 14:13] LABS: INR 0.86; PROTIME 12.5 Seconds (11.0-16.0); PTT 29.7 Seconds (22.3-41.8)
[2019-03-17 14:21] LABS: ALB/GLOB RATIO 1.9; ALBUMIN 4.3 g/dL (3.5-5.0); CALCIUM 9.4 mg/dL (8.8-10.2); CREATININE 1.3 mg/dL (0.5-0.9); POTASSIUM 3.8 mmol/L (3.5-5.1); TOTAL BILIRUBIN 0.37 mg/dL (0.20-1.00); TOTAL PROTEIN 6.6 g/dL (6.3-8.3)
--- NOTE | 2019-03-17 15:13 | PROVIDER DOCUMENTATION ---
This chart was entered by Lety Burton Scribe, acting as scribe for Graeme Hubbard MD. HPI-Cardiac General - General Stated Complaint: AFIB RVR Time Seen by Provider: 03/17/19 13:20 Source: patient Allergies/Adverse Reactions: Patient Allergies Allergy/AdvReac Type Severity Reaction Status Date / Time No Known Allergies Allergy Verified 12/01/18 15:16 Home Medications: Home Medication List Medication Instructions Recorded Confirmed Last Taken Type Diltiazem C.d. [Cardizem Cd] 120 mg PO DAILY #30 cap 12/13/18 03/17/19 03/17/19 04:00 Rx Metoprolol Succinate E.r. [Toprol 100 mg PO DAILY #30 tab 12/13/18 03/17/19 03/17/19 04:00 Rx Xl] Aspirin [Aspirin EC] 325 mg PO DAILY 03/17/19 03/17/19 03/16/19 History - History of Present Illness-Cardiac Nature of Presenting Problem: Patient is a 58 year old female who presents to the ED via EMS with palpitations. Patient states she woke up around 1200 with palpitations and chest pressure. Denies shortness of breath. History of A fib. Location: reports: central Quality of Pain: reports: pressure Severity in ED: mild Onset/Duration: this afternoon (1200) Timing: still present Context/Activities at Onset: reports: light activity Palpitation Quality: fast/pounding heart beat History of arrythmia: reports: A-Fib Associated Symptoms: reports: denies symptoms Similar Symptoms Previously?: Yes Recently Seen Here or By Another Healthcare Provider: No Review of Systems - Adult - REVIEW OF SYSTEMS - ADULT Constitutional: reports: no symptoms reported. denies: chills, fever, fatique Eyes: reports: no symptoms reported Ears, Nose, Mouth & Throat: reports: no symptoms reported Cardiovascular: reports: see HPI, chest pain, palpitations. denies: heart murmur Respiratory: reports: no symptoms reported. denies: cough, shortness of breath, wheezing Gastrointestinal: reports: no symptoms reported Genitourinary: reports: no symptoms reported Musculoskeletal: reports: no symptoms reported Integumentary: reports: no symptoms reported Neurological: reports: no symptoms reported Psychiatric: reports: no symptoms reported Endocrine: reports: no symptoms reported Hematologic/Lymphatic: reports: no symptoms reported Allergic/Immunologic: reports: no symptoms reported All Other Systems: Reviewed and Negative Past History - Adult - PAST MEDICAL HISTORY-ADULT Review of Records: reports: Old Records Reviewed, Nursing Assessment Review, Medications Reviewed, Social history reviewed & non-contributory. Major Childhood Illnesses: reports: denies history Cardiovascular: reports: A-Fib, HTN Respiratory: reports: denies history Gastrointestinal: reports: denies history Obstetrical/Gynecological: reports: denies history Genitourinary: reports: denies history Musculoskeletal: reports: denies history Neurological: reports: denies history Endocrine/Immune: reports: denies history Other Conditions: reports: denies history - PRIOR SURGERIES/PROCEDURES Surgical/Procedure History: reports: appendectomy - IMMUNIZATION STATUS Childhood Immunizations: See Nurse Assessment Flu Vaccine: See Nurse Assessment - FAMILY HISTORY Family History: reviewed, not pertinent - SOCIAL HISTORY Smoking: cigarettes, greater than 1 pack/day Provider spent 3-5 mins advising pt. on dangers of tobacco.: Discussed manners to quit use, and f/u contacts for add'l counseling. Substance Use: denies Physical Exam-General - PHYSICAL EXAM-ADULT Initial Vital Signs Reviewed: Yes - CONSTITUTIONAL General Appearance: alert, no apparent distress. negative: lethargic, slow to respond - HEAD, EARS, NOSE, MOUTH & THROAT HENMT: normocephalic/atraumatic, moist mucous membranes. negative: angioedema, hearing deficit - RESPIRATORY Respiratory: chest non-tender, lungs clear, normal breath sounds. negative: crackles, rhonchi, stridor - CARDIOVASCULAR Cardiovascular: normal peripheral pulses, tachycardia, irregularly irregular. negative: systolic murmur - GASTROINTESTINAL (ABDOMEN) Abdominal Exam: normal bowel sounds, non tender, soft. negative: guarding, rebound - MUSCULOSKELETAL Extremity: non-tender, normal inspection. negative: deformity, erythema - SKIN Integumentary: normal color, normal turgor, warm/dry. negative: diaphoresis, ecchymosis, erythema, jaundice - NEUROLOGIC Neurologic: grossly normal. negative: aphasia, facial droop - PSYCHIATRIC Psych/Mental Status: normal mood/affect, oriented x 3. negative: anxious Progress - PLAN OF CARE/RESULTS Progress/Plan/Lab Results: Vital Signs - 8 hr 03/17/19 13:21 03/17/19 13:25 03/17/19 13:26 Temperature 97.6 F Pulse Rate 178 H 185 H 183 H Respiratory Rate 20 24 24 Blood Pressure 211/163 O2 Sat by Pulse Oximetry 95 95 03/17/19 13:27 03/17/19 13:30 03/17/19 13:40 Temperature Pulse Rate 185 H 168 H 142 H Respiratory Rate 30 H 22 28 H Blood Pressure 144/119 O2 Sat by Pulse Oximetry 96 95 03/17/19 13:50 03/17/19 14:00 03/17/19 14:10 Temperature Pulse Rate 137 H 124 H 130 H Respiratory Rate 19 24 22 Blood Pressure O2 Sat by Pulse Oximetry 94 L 94 L 93 L 03/17/19 14:20 03/17/19 14:30 03/17/19 14:40 Temperature Pulse Rate 140 H 138 H 139 H Respiratory Rate Blood Pressure O2 Sat by Pulse Oximetry 94 L 94 L Laboratory Results - last 24 hr 03/17/19 03/17/19 03/17/19 13:49 13:49 13:49 WBC 8.61 RBC 5.13 Hgb 16.4 H Hct 48.9 H MCV 95.3 MCH 32.0 H MCHC 33.5 RDW Std Deviation 14.2 Plt Count 227 MPV 10.0 Immature Gran % (Auto) 0.2 Neut % (Auto) 66.4 Lymph % (Auto) 22.9 [place] % (Auto) 8.2 Eos % (Auto) 2.0 Baso % (Auto) 0.3 Immature Gran # (Auto) 0.02 Neut # (Auto) 5.71 Lymph # (Auto) 1.97 [place] # (Auto) 0.71 H Eos # (Auto) 0.17 Baso # (Auto) 0.03 PT 12.5 INR 0.86 PTT (Actin FS) 29.7 Sodium 136 Potassium 3.8 Chloride 101 Carbon Dioxide 19 L Anion Gap 16 BUN 26 H Creatinine 1.3 H Estimated GFR/1.73 m2 42 BUN/Creatinine Ratio 20 Glucose 141 H Calculated Osmolality 279 Calcium 9.4 Total Bilirubin 0.37 AST 13 ALT 14 Alkaline Phosphatase 106 H Troponin T [id number] Pept Total Protein 6.6 Albumin 4.3 Globulin 2.3 Albumin/Globulin Ratio 1.9 03/17/19 03/17/19 13:49 13:49 WBC RBC Hgb Hct MCV MCH MCHC RDW Std Deviation Plt Count MPV Immature Gran % (Auto) Neut % (Auto) Lymph % (Auto) [place] % (Auto) Eos % (Auto) Baso % (Auto) Immature Gran # (Auto) Neut # (Auto) Lymph # (Auto) [place] # (Auto) Eos # (Auto) Baso # (Auto) PT INR PTT (Actin FS) Sodium Potassium Chloride Carbon Dioxide Anion Gap BUN Creatinine Estimated GFR/1.73 m2 BUN/Creatinine Ratio Glucose Calculated Osmolality Calcium Total Bilirubin AST ALT Alkaline Phosphatase Troponin T < 0.010 [id number]-[id number] Pept 416 H Total Protein Albumin Globulin Albumin/Globulin Ratio Orders Category Date Time Status CHEST-1 VIEW [RAD] Stat Exams 03/17/19 13:29 Completed BNP [PRO B-NATRIURETIC PEPTIDE] Stat Lab 03/17/19 13:49 Completed CBC WITH ELECTRONIC DIFF [HEME] Stat Lab 03/17/19 13:49 Completed COMPREHENSIVE METABOLIC PANEL [CHEM] Stat Lab 03/17/19 13:49 Completed PT [PROTIME WITH INR] [COAG] Stat Lab 03/17/19 13:49 Completed PTT [COAG] Stat Lab 03/17/19 13:49 Completed TROPONIN T Stat Lab 03/17/19 13:49 Completed URINALYSIS [URINALYSIS] Stat Lab 03/17/19 13:28 Uncollected Diltiazem 125 mg/Ns [Cardizem 125/Ns] Med 03/17/19 13:30 Active 125 mg in 125 ml IV As Directed mls/hr Diltiazem [Cardizem] Med 03/17/19 13:27 Discontinued 20 mg IV NOW ONE Result Diagrams: 03/17/19 13:49 03/17/19 13:49 - EKG 1 Time of EKG reading by physician:: 13:22 EKG Read and Signed by:: Graeme Hubbard EKG Interpretation (*Must complete 3 of following elements*): Abnormal (marked ST abnormality, possible inferolateral subendocardial injury.) Rate: 175 Rhythm: atrial fibrillation with rapid ventricular response [place]: normal QRS: LVH (minimal voltage criteria, may be normal variant) Comments: septal infarct, age undetermined; - XRAY 1 XRAY Study: Chest Impression: See EMR Report ( CHEST-1 VIEW - 03/17/2019 INDICATION: chest pain COMPARISON: 12/11/2018 FINDINGS: There is cardiomegaly and moderate pulmonary vascular congestion. No significant infiltrates. No pneumothorax or pleural effusion. IMPRESSION: Stable cardiomegaly and pulmonary vascular congestion. Electronically signed by Edilberto Winter 03/17/2019 1:50 PM 03/17/19 1350 Interpreting Physician: Edilberto Winter MD Dictated Date/Time: 03/17/19 1349 cc: Graeme Hubbard MD; Anatoliy Santiago MD) - CONSULTS/PCP/HOSPITALIST Notification #1 *Consult/PCP/Hospitalist*: BERENICE Marquez for Hospitalist Time Discussed: 15:11 Reason/Comments: Dr. Hubbard consulted with [place] about patient. Consult Disposition: Will see in ED, Admit Departure - Departure Date of Disposition Decision: 03/17/19 Time of Disposition Decision: 15:12 DIAGNOSIS: Atrial fibrillation with rapid ventricular response, Renal insufficiency Disposition: ADMITTED INPATIENT 09 Certified Medical Emergency: Emergent Condition: Good Referrals and Follow-Ups: Anatoliy Santiago MD [Primary Care Provider] - - Critical Care Note This patient required my direct & personal management of CC.: Yes Total Time (mins): 35 Critical Care Statement: This patient required my direct personal management to treat or rule out processes, the absence of which, could potentiallly result in sudden, clinically significant life or limb threatening deterioration. Attestation - Physician/ SCOTT Attestation Patient care was provided by Advanced Practice Provider:: No The physician spent face to face time with patient:: Yes Advanced Practice Provider documentation review:: Supervising physician onsite and consulted in the evaluation and care of this patient. The physician did have a face to face encounter with the patient. This chart was documented by the indicated scribe, (Lety Burton Scribe) and accurately reflects the services I performed and decisions made by me, Graeme Hubbard MD, as attested by the provider's signature.
--- NOTE | 2019-03-17 15:44 | EKG Report ---
Test Performed on : 03/17/2019 1:22:27 PM Test Reason : ED. No order in [place] Blood Pressure : / mmHG Vent. Rate : 175 BPM Atrial Rate : 187 BPM P-R Int : 000 ms QRS Dur : 080 ms QT Int : 248 ms P-R-T Axes : 000 -25 153 degrees QTc Int : 423 ms Atrial fibrillation. with rapid ventricular response. Minimal voltage criteria for LVH, may be normal variant Septal infarct (cited on or before 17-NOV-2018) Marked ST abnormality, possible inferolateral subendocardial injury Abnormal ECG When compared with ECG of 11-DEC-2018 11:24, Atrial fibrillation. has replaced Sinus rhythm. Vent. rate has increased BY [address] now depressed in Inferior leads ST now depressed in Anterolateral leads Unconfirmed Result
[2019-03-17 17:26] LABS: URINE SOURCE CLEAN CATCH
[2019-03-17 17:28] LABS: BILIRUBIN URINE NEGATIVE (NEGATIVE); BLOOD URINE NEGATIVE (NEGATIVE); COLOR YELLOW; GLUCOSE URINE NEGATIVE (NEGATIVE); KETONE URINE NEGATIVE (NEGATIVE); LEUKOCYTES URINE NEGATIVE (NEGATIVE); NITRITE URINE NEGATIVE (NEGATIVE); PH URINE 5.5; PROTEIN URINE NEGATIVE (NEGATIVE); SP GRAVITY URINE 1.011; TURBIDITY URINE CLEAR (CLEAR); UROBILINOGEN URINE NORMAL (NORMAL)
[2019-03-17 17:30] LABS: UR EPITHELIAL CELLS <10 /HPF (<10); URINE BACTERIA NEGATIVE /HPF; URINE RBC <10 /HPF (<10); URINE WBC <10 /HPF (<10)
[2019-03-17] MEDS ORDERED: NS 1,000 ML IV SCH (17:35)
[2019-03-17] MEDS ORDERED: ZOFRAN IV PRN (17:35)
[2019-03-17] MEDS ORDERED: TYLENOL PO PRN (17:35)
[2019-03-18 06:09] LABS: HEMATOCRIT 48.5 % (37.0-47.0); HEMOGLOBIN 15.9 g/dL (12.0-16.0); MCH 31.7 PG (27-31); MCHC 32.8 g/dL (33-37); MCV 96.8 FL (81-99); MPV 10.4 FL (7.4-10.4); NEUT% 56.6 % (42.2-75.2); PLT 212 X1000 (130-400); RBC 5.01 XMIL (4.2-5.4); RDW 14.4 % (11.5-14.5); WBC 5.62 X1000 (4.8-10.8)
[2019-03-18 06:10] LABS: BASO# 0.03 X1000 (0.0-0.2); BASO% 0.5 % (0.0-0.8); EOS# 0.14 X1000 (0.0-0.7); EOS% 2.5 % (0.0-10.0); LYMPH# 1.77 X1000 (1.2-3.4); LYMPH% 31.5 % (20.5-51.1); MONO% 8.9 % (1.7-9.3); NEUT# 3.18 X1000 (1.4-6.5)
[2019-03-18 06:14] LABS: CALCIUM 9.2 mg/dL (8.8-10.2); POTASSIUM 4.2 mmol/L (3.5-5.1)
--- NOTE | 2019-03-18 07:39 | EKG Report ---
Test Performed on : 03/17/2019 7:08:57 PM Test Reason : rhythm change Blood Pressure : / mmHG Vent. Rate : 068 BPM Atrial Rate : 068 BPM P-R Int : 172 ms QRS Dur : 072 ms QT Int : 400 ms P-R-T Axes : 059 -10 100 degrees QTc Int : 425 ms Normal sinus rhythm. Septal infarct (cited on or before 17-NOV-2018) T wave abnormality, consider lateral ischemia Abnormal ECG When compared with ECG of 17-MAR-2019 13:22, (Unconfirmed) Sinus rhythm. has replaced Atrial fibrillation. Vent. rate has decreased BY [address] no longer depressed in Inferior leads ST no longer depressed in Anterolateral leads Confirmed by Jillian PACHECO, Anibal Fang ([id number]) on 03/18/2019 7:29:00 PM
[2019-03-18] MEDS ORDERED: ASPIRIN EC PO SCH (09:00)
[2019-03-18] MEDS ORDERED: TOPROL XL PO SCH (09:00)
--- NOTE | 2019-03-18 09:48 | EKG Report ---
Test Performed on : 03/18/2019 09:27:28 AM Test Reason : afib Blood Pressure : / mmHG Vent. Rate : 069 BPM Atrial Rate : 069 BPM P-R Int : 158 ms QRS Dur : 078 ms QT Int : 418 ms P-R-T Axes : 044 002 104 degrees QTc Int : 447 ms Normal sinus rhythm. T wave abnormality, consider lateral ischemia Abnormal ECG When compared with ECG of 17-MAR-2019 19:08, (Unconfirmed) No significant change was found Confirmed by Jillian PACHECO, Anibal Fang ([id number]) on 03/18/2019 7:29:53 PM
--- NOTE | 2019-03-18 09:51 | HISTORY AND PHYSICAL ---
PRIMARY CARE PHYSICIAN: None. APPLICATION DEVELOPMENT TEAM LEAD: Dr. Santiago. CHIEF COMPLAINT: Palpitations and chest pressure that began around noon today. HISTORY OF PRESENTING ILLNESS: This is a 58-year-old female who presents to [facility] ER with complaints of palpitations that woke her up around 12:00 noon today with chest pressure. She denied any shortness of breath. States she has a history of atrial fibrillation and has been taking her medications appropriately. When she arrived, her EKG showed atrial fibrillation with RVR at 175. She was given 20 mg of Cardizem IV x1 in the emergency room with little change in her rate so she was placed on a Cardizem drip and will be admitted to the CIC unit for further evaluation and treatment. PAST MEDICAL HISTORY: 1. Atrial fibrillation. 2. Hypertension. PAST SURGICAL HISTORY: 1. Appendectomy. 2. Bilateral tubal ligation. FAMILY HISTORY: Reviewed and noncontributory. SOCIAL HISTORY: She currently lives alone. States she has decreased her cigarette use down to 3-4 cigarettes daily from a pack a day and denies any alcohol or illicit drug use. ALLERGIES: She has no known drug allergies. HOME MEDICATIONS: 1. Aspirin 325 mg p.o. daily. 2. Cardizem 180 mg p.o. daily will be held. 3. Metoprolol 100 mg p.o. daily. LABORATORY DATA: Showed a white blood cell count of 8.61, hemoglobin of 16.4, hematocrit 48.9, platelets 227,000. PT/INR 12.5 and 0.86. Sodium of 136, potassium 3.8, chloride 101, CO2 19, BUN 26, creatinine 1.3, glucose 141. Troponin was less than 0.010. ProBNP of 416. EKG showed atrial fibrillation with RVR at 175. Chest x-ray shows stable cardiomegaly and pulmonary vascular congestion. REVIEW OF SYSTEMS: She denied any fever, chills, blurred vision, dizziness. She was positive for palpitations and chest pressure. Denied any shortness of breath or cough. Denied any abdominal pain, constipation, diarrhea, burning or hurting with urination. PHYSICAL EXAMINATION: VITAL SIGNS: On arrival, she had a temp of 97.6 degrees, pulse 178, respirations 20, blood pressure 211/163, satting 95% on room air. Blood pressure is now currently down to 144/119. GENERAL: This is a 58-year-old female who sitting up in the bed and answers questions appropriately. HEENT: Normocephalic, atraumatic. Normal ENT inspection. Oropharynx and nares are clear. NECK: Normal inspection. Normal range of motion. LUNGS: Clear to auscultation bilaterally with equal lung expansion and chest wall movement. HEART: Irregular rate and rhythm. No murmurs, rubs or gallops noted. ABDOMEN: Soft, nontender, nondistended. Bowel sounds are present x4 quadrants. MUSCULOSKELETAL: She has 5/5 strength x4 extremities. NEUROLOGICAL: Cranial nerves 2-12 appear grossly intact. ASSESSMENT: 1. Atrial fibrillation with RVR. 2. Hypertension. 3. Acute kidney injury. 4. Tobacco abuse. PLAN: She will be admitted to CIC, placed on Telemetry. Healthy heart diet. We will consult Cardiology. She has been placed on a Cardizem drip per protocol. Placed on normal saline at 50 mL an hour. Check an echocardiogram in the a.m. Continue her home meds as previously identified. Given her Tylenol 650 p.o. q.6 hours p.r.n. Zofran 4 mg IV q.4 hours p.r.n. Recheck a CBC, CMP in the a.m. Further orders after seen by attending and science consultant. Patient seen and examined by me face to face, all the laboratory, vitals signs, images were reviewed, patient presented with A fib with RVR, some chest pain that has resolved already, she will be placed on diltiazem drip, Cardiology consult, he will be admitted to the CIC unit, telemetry, I agree with the INSTRUMENT MECHANIC's assessment and plan, Dirk Oliveros MD. Dictated by BERENICE Kent for Dirk Montes MD cc: BERENICE Kent MD [facility]
[2019-03-18] MEDS ORDERED: XARELTO PO SCH (09:56)
[2019-03-18] MEDS ORDERED: ALDACTONE PO SCH (10:00)
[2019-03-18] MEDS ORDERED: BETAPACE PO SCH (12:00)
[2019-03-18 12:03] VITALS: BP 134/61
[2019-03-19] MEDS ORDERED: CARDIZEM CD PO SCH (09:00)
--- NOTE | 2019-03-20 21:56 | CARDIOLOGY CONSULTATION ---
DATE: 03/18/2019 CHIEF COMPLAINT: Palpitations, irregular heartbeat. HISTORY OF PRESENT ILLNESS: Ms. Dobson is a 58-year-old female who is known to me. She presented to the emergency room yesterday at about 1 p.m. or so after noticing sudden onset of palpitations when she was at work. Upon presentation, initial electrocardiogram was noted to show atrial fibrillation with rapid response, nonspecific ST and T abnormality. Heart rate was 175 beats per minute. They put her on Cardizem, and eventually she has converted back to sinus rhythm. They did a followup EKG at 7 p.m. last night, and she had already converted. The patient has had 2 sets of troponin levels checked, one at 1:40 p.m. yesterday and one at 5 a.m. this morning. They are negative. ProBNP was slightly elevated at 416 pg/mL. Her chest x-ray done yesterday showed some pulmonary vascular congestion. This morning she was feeling back to her normal self. She said that her work environment has been hotter than usual. That is the only change that she can think of. PAST MEDICAL HISTORY: Includes the finding of paroxysmal atrial fibrillation. I saw her at my office recently in followup. We had put her on medications to try to minimize the spells of atrial fibrillation. She does have hypertension. She has been a tobacco user. She probably has a touch of diastolic heart failure, and she is obese. PAST SURGICAL HISTORY: Previous D and C, appendectomy and tonsillectomy. SOCIAL HISTORY: She is . She has 2 children. She works at [employer]. HOME MEDICATIONS: Metoprolol XL 100, spironolactone 12.5 daily and Cardizem CD 120 daily. She is supposed to be on Xarelto. ALLERGIES: She has no allergies. REVIEW OF SYSTEMS: Multiple systems were interrogated. Nothing remarkable. PHYSICAL EXAMINATION: Vital Signs: Blood pressure 141/71, temperature 98.1, pulse 67, respirations 15. General: She is awake, alert and oriented. No distress. HEENT: Unremarkable. Chest: Clear to auscultation and percussion. Cardiovascular: Heart sounds regular and rhythmic. No gallop or murmur. Abdomen: Obese, nontender. No mass. No hepatomegaly. Extremities: Good pulses. No peripheral edema. Neurological: Follows commands. Moves 4 extremities. BLOOD WORK: BUN and creatinine normal. TSH and free T4 normal. IMPRESSION: 1. Patient who presents with paroxysmal atrial fibrillation. She has converted to sinus rhythm following administration of Cardizem. 2. Patient with obesity. 3. History of hypertension. 4. Probably a mild degree of diastolic heart failure. RECOMMENDATIONS: We will switch her over to spironolactone 12.5 daily plus sotalol 80 twice a day. We will stop metoprolol XL. We will get a followup EKG at the office in 24 hours and then again in 72 hours. We will follow her with a loop recorder monitor. The patient may be discharged home this afternoon. We will arrange for office followup with us. cc: Anatoliy Santiago MD
--- NOTE | 2019-03-21 14:17 | DISCHARGE SUMMARY ---
ADMISSION DATE: 03/17/2019 DISCHARGE DATE: 03/18/2019 CONSULTS: Cardiology, Dr. Santiago. DISCHARGE DIAGNOSES: 1. Atrial fibrillation with rapid ventricular response. 2. Hypertension. 3. Acute kidney injury. 4. Tobacco abuse. HOSPITAL COURSE: A patient with history of paroxysmal atrial fibrillation, presented to the ER with complaints of palpitations associated with chest pressure. Denied any medication noncompliance. On initial evaluation, she was found to be in atrial fibrillation with rapid ventricular response with heart rate of 175. She was given Cardizem initially as a bolus with low response and was subsequently placed with a Cardizem drip which did improve her rate. Overnight, she spontaneously converted back to normal sinus rhythm. Troponins were negative. Other than the above mentioned atrial fibrillation, no other abnormalities were noted on telemetry. She had a slight increase in creatinine to 1.3, but this resolved with IV fluid overnight. Discharge creatinine 1.0 with BUN of 18. The case was discussed with Cardiology. She follows with Dr. Santiago, who is quite familiar with her case. After discussion, they decided to place the patient on sotalol with close follow-up in their office and cleared her for discharge. The patient's symptoms resolved when she converted back to normal sinus rhythm and did not repeat. Of note, patient had been off blood thinner. She could not afford Xarelto. Discussed this with Cardiology as well and they plan on getting patient assistance for Xarelto. If this is unsuccessful, may have to put her on Coumadin. This was discussed with the patient. She was agreeable. Encouraged p.o. fluids. DISCHARGE VITAL SIGNS: Temperature 97.9 degrees, pulse 59, respirations 23, blood pressure 134/61, O2 saturation 97%. DISCHARGE DIET: Cardiac. DISCHARGE MEDICATIONS: 1. Spironolactone 12.5 mg p.o. daily. 2. Sotalol 80 mg p.o. b.i.d. 3. Diltiazem XT 120 mg p.o. daily. 4. Xarelto 20 mg p.o. with supper. FOLLOWUP AND PLAN: Patient discharging home to follow up with PCP and her finisher wallboard and plasterboard, Dr. Santiago. The patient encouraged to take p.o. fluids for the next couple of days. Recommended lab recheck with PCP or Cardiology to confirm stability of kidney function. Greater than 30 minutes spent arranging discharge and counseling patient.
== END 2019-03-18 13:15 | disposition home or self-care (01) | DRG 309 ==
LOC: SUPCPDRO → ED 13:19 → SUATTDRO 13:20 → 3S 13:20
PROVIDERS: ATTEND Internal Medicine
CPT/HCPCS: 71010; 71045; 80048; 80053; 81001; 83880; 84439; 84443; 84484; 85025; 85610; 85730; 93005; 93010; 93306; A9270; J7030

== ENCOUNTER 2019-08-03 08:17 | Observation (INO) ==
--- NOTE | 2019-08-03 09:35 | Diag Imaging Result Doc PS360 ---
EXAM: CHEST-1 VIEW 08/03/2019 HISTORY: CP TECHNIQUE: AP portable at 0919 COMMENT: The pulmonary vascularity is slightly prominent. The heart size is not enlarged. The appearance the chest has not changed significantly since 03/17/2019. IMPRESSION: Stable chest. Electronically signed by Michael Padron 08/03/2019 9:33 AM
--- NOTE | 2019-08-03 09:36 | PROVIDER DOCUMENTATION ---
HPI-Cardiac General - General Chief Complaint: Palpitations Stated Complaint: A FIB RVR Time Seen by Provider: 08/03/19 09:03 Allergies/Adverse Reactions: Patient Allergies Allergy/AdvReac Type Severity Reaction Status Date / Time No Known Allergies Allergy Verified 12/01/18 15:16 Home Medications: Home Medication List Medication Instructions Recorded Confirmed Last Taken Type Diltiazem HCl [Cartia Xt] 120 mg PO DAILY 30 Days #30 03/18/19 08/03/19 08/02/19 Rx cap.er.24h Sotalol [Betapace] 80 mg PO BID 30 Days #60 tab 03/18/19 08/03/19 08/02/19 Rx Spironolactone [Aldactone] 12.5 mg PO DAILY 30 Days #30 tab 03/18/19 08/03/19 08/02/19 Rx - History of Present Illness-Cardiac Nature of Presenting Problem: Pt is a 58 y/o female who presents with c/o palpitations and CP associated with some SOB. As per the pt, she started feeling her heart race around 7 AM, she tried to rest and see but the symptoms continued. She called 911 and came to ER. Pt felt her symptoms go away when she was being hooked to ECG. The pt continues to have intermittent sternal pain and left sided chest pain. Denies any SOB or palpitations now. Denies any lightheadedness, nausea, headache or dizziness or abd pain or urinary symptoms. Per pt she usually takes her medications on time but it got delayed today because of time change. Feels as if her palpitations are coming back. Per pt she has not been taking her anticoagulants as prescribed by cardiology. has been taking aspirin 325 on somedays. Review of Systems - Adult - REVIEW OF SYSTEMS - ADULT Constitutional: denies: no symptoms reported Eyes: denies: no symptoms reported Ears, Nose, Mouth & Throat: denies: no symptoms reported Cardiovascular: reports: see HPI Respiratory: reports: see HPI Gastrointestinal: denies: no symptoms reported Genitourinary: denies: no symptoms reported Musculoskeletal: denies: no symptoms reported Integumentary: denies: no symptoms reported Neurological: denies: no symptoms reported Psychiatric: denies: no symptoms reported Endocrine: denies: no symptoms reported Hematologic/Lymphatic: denies: no symptoms reported Allergic/Immunologic: denies: no symptoms reported Past History - Adult - PAST MEDICAL HISTORY-ADULT Review of Records: reports: Old Records Reviewed, Nursing Assessment Review, Medications Reviewed, Social history reviewed & non-contributory. - IMMUNIZATION STATUS Childhood Immunizations: See Nurse Assessment Flu Vaccine: See Nurse Assessment Physical Exam-General - PHYSICAL EXAM-ADULT Initial Vital Signs Reviewed: Yes - CONSTITUTIONAL General Appearance: appears well, alert, no apparent distress - EYES Eyes: PERRL/EOMI - HEAD, EARS, NOSE, MOUTH & THROAT HENMT: normocephalic/atraumatic, moist mucous membranes, normal ENT inspection - NECK Neck: supple - RESPIRATORY Respiratory: lungs clear, normal breath sounds, no respiratory distress, no accessory muscle use - CARDIOVASCULAR Cardiovascular: regular rate, rhythm, no JVD, no murmur - GASTROINTESTINAL (ABDOMEN) Abdominal Exam: non tender, soft - MUSCULOSKELETAL Extremity: non-tender, no pedal edema Peripheral Pulses: radial (R): 2+, radial (L): 2+ - SKIN Integumentary: normal color, warm/dry - NEUROLOGIC Neurologic: grossly normal - PSYCHIATRIC Psych/Mental Status: normal mood/affect, oriented x 3 - HEART Score HEART Score: History: Moderately Suspicious HEART Score: ECG: Non-Specific Repolarization Disturbance/LBBB/PM HEART Score: Age: 45-65 Years HEART Score: Risk Factors for Atherosclerotic Disease: 1 or 2 Risk Factors HEART Score: Troponin: < or = Normal Limit Total HEART Score:: 4 Progress - PLAN OF CARE/RESULTS Progress/Plan/Lab Results: Vital Signs - 8 hr 08/03/19 08:26 08/03/19 08:35 Temperature 98.1 F Pulse Rate 99 H 97 H Respiratory Rate 25 H 16 Blood Pressure 185/97 182/96 O2 Sat by Pulse Oximetry 96 97 Laboratory Results - last 24 hr 08/03/19 08/03/19 08/03/19 09:55 09:55 09:55 WBC 8.39 RBC 4.93 Hgb 15.8 Hct 48.8 H MCV 99.0 MCH 32.0 H MCHC 32.4 L RDW Std Deviation 13.6 Plt Count 217 MPV 10.0 Immature Gran % (Auto) 0.0 Neut % (Auto) 71.4 Lymph % (Auto) 20.6 [place] % (Auto) 6.1 Eos % (Auto) 1.5 Baso % (Auto) 0.4 Immature Gran # (Auto) 0.00 Neut # (Auto) 5.99 Lymph # (Auto) 1.73 [place] # (Auto) 0.51 Eos # (Auto) 0.13 Baso # (Auto) 0.03 Sodium 137 Potassium 4.0 Chloride 98 Carbon Dioxide 25 Anion Gap 14 BUN 12 Creatinine 0.9 Estimated GFR/1.73 m2 > 60 BUN/Creatinine Ratio 13 Glucose 97 Calculated Osmolality 273 Calcium 9.5 Magnesium 1.6 Total Bilirubin 0.35 AST 16 ALT 24 Alkaline Phosphatase 98 Creatine Kinase 92 Troponin T < 0.010 Total Protein 6.8 Albumin 4.4 Globulin 2.4 Albumin/Globulin Ratio 1.8 Orders Category Date Time Status CHEST-1 VIEW [RAD] Stat Exams 08/03/19 08:58 Completed CBC WITH ELECTRONIC DIFF [HEME] Stat Lab 08/03/19 09:55 Completed CK PROFILE [SP CHEM] Stat Lab 08/03/19 09:55 Completed COMPREHENSIVE METABOLIC PANEL [CHEM] Stat Lab 08/03/19 09:55 Completed MAGNESIUM [CHEM] Stat Lab 08/03/19 09:55 Completed TROPONIN T Stat Lab 08/03/19 09:55 Completed Result Diagrams: 08/03/19 09:55 08/03/19 09:55 - REASSESSMENT Reassessment #1 Time Reassessed: 11:15 Status: improving (HR well controlled. continues to have CP. will admit for observation.) - CONSULTS/PCP/HOSPITALIST Notification #1 *Consult/PCP/Hospitalist*: d/w Mackenzie NG, for hospitalist Time Discussed: 11:28 Consult Disposition: Admit Departure - Departure Date of Disposition Decision: 08/03/19 Time of Disposition Decision: 11:06 DIAGNOSIS: Atrial fibrillation with rapid ventricular response, Chest pain Disposition: ADMITTED INPATIENT 09 Certified Medical Emergency: Emergent Condition: Good Additional Instructions: ED Follow Up Instructions: Please continue your medications as before and do not miss any doses. Please follow with your doctor in 1-2 days. Please avoid stimulants and caffeine products. You have been treated by a care provider in the Emergency Department. These instructions are being provided to you so you can have an understanding of how to care for yourself upon discharge. Upon discharge from the Emergency Department, you are responsible for making arrangements for follow-up care by a physician of your choice. Take all prescribed medications as directed. Return to the Emergency Department immediately for any new or worsening symptoms. You may call the Physician Referral phone number at [phone] to obtain a list of Physicians who are taking new patients. Referrals and Follow-Ups: Anatoliy Santiago MD [Primary Care Provider] - Discharge Education: Atrial Fibrillation, [facility] - Critical Care Note This patient required my direct & personal management of CC.: No Attestation - Physician/ SCOTT Attestation Patient care was provided by Advanced Practice Provider:: No The physician spent face to face time with patient:: Yes Advanced Practice Provider documentation review:: Supervising physician onsite and consulted in the evaluation and care of this patient. The physician did have a face to face encounter with the patient.
[2019-08-03 10:12] LABS: BASO# 0.03 X1000 (0.0-0.2); BASO% 0.4 % (0.0-0.8); EOS# 0.13 X1000 (0.0-0.7); EOS% 1.5 % (0.0-10.0); HEMATOCRIT 48.8 % (37.0-47.0); HEMOGLOBIN 15.8 g/dL (12.0-16.0); LYMPH# 1.73 X1000 (1.2-3.4); LYMPH% 20.6 % (20.5-51.1); MCHC 32.4 g/dL (33-37); MONO# 0.51 X1000 (0.11-0.59); MONO% 6.1 % (1.7-9.3); NEUT# 5.99 X1000 (1.4-6.5); NEUT% 71.4 % (42.2-75.2); PLT 217 X1000 (130-400); RBC 4.93 XMIL (4.2-5.4); RDW 13.6 % (11.5-14.5); WBC 8.39 X1000 (4.8-10.8)
--- NOTE | 2019-08-03 10:28 | ED EKG INTERP ---
This chart was entered by Soumya Coronado Scribe, acting as scribe for Kerwin Mendoza MD. EKG Interpretation - EKG Time of EKG reading by physician:: 09:21 EKG Read and Signed by:: Kerwin Mendoza EKG Interpretation (*Must complete 3 of following elements*): Abnormal Rate: 98 Rhythm: NSR [place]: normal QRS: other (septal infarct) ID Interval: normal ST Wave: normal Attestation - Physician/ SCOTT Attestation Patient care was provided by Advanced Practice Provider:: No The physician spent face to face time with patient:: Yes Advanced Practice Provider documentation review:: Supervising physician onsite and consulted in the evaluation and care of this patient. The physician did have a face to face encounter with the patient. This chart was documented by the indicated scribe, (Soumya Coronado Scribe) and accurately reflects the services I performed and decisions made by me, Kerwin Mendoza MD, as attested by the provider's signature.
[2019-08-03 10:43] LABS: AGAP 14; ALB/GLOB RATIO 1.8; ALBUMIN 4.4 g/dL (3.5-5.0); ALKALINE PHOSPHATASE 98 U/L (32-104); BUN 12 mg/dL (8-22); CALCIUM 9.5 mg/dL (8.8-10.2); CHLORIDE 98 mmol/L (98-107); CK PROFILE 92 U/L (24-173); COSMO 273; CREATININE 0.9 mg/dL (0.5-0.9); ESTIMATED GFR > 60; GLUCOSE 97 mg/dL (70-104); GOT 16 U/L (10-30); GPT 24 U/L (10-36); MAGNESIUM 1.6 mg/dL (1.5-2.7); SODIUM 137 mmol/L (136-145); TCO2 25 mmol/L (25-35); TOTAL BILIRUBIN 0.35 mg/dL (0.20-1.00); TOTAL PROTEIN 6.8 g/dL (6.3-8.3)
--- NOTE | 2019-08-03 14:40 | HISTORY AND PHYSICAL ---
CHIEF COMPLAINT: Palpitations, irregular heartbeat. HISTORY OF PRESENT ILLNESS: Ms Moreland is a 58-year-old female with history of atrial fibrillation, hypertension, diastolic heart failure and obesity. She presents to the emergency room after having a sudden onset of palpitations. She stated she was at work when they started. She sat outside, tried to relax when her heart rate did not slow down she began to feel chest tightness. She called 911. EMS reports heart rates of 150 to 199, atrial fibrillation, RVR on their monitor. She converted to sinus rhythm shortly after arriving in the emergency room. At the time of my exam the patient's heart rates are running in the 90s, sinus rhythm. She continued to have some chest tightness after converting to sinus rhythm. She rated this is a 1 to 2/10. Ms Moreland has a history of atrial fibrillation and she was hospitalized in March, having atrial fibrillation, RVR requiring a Cardizem drip at that time. She was evaluated by Cardiology. Medicines were changed to sotalol, spironolactone, and Cardizem 120 daily. On discharge, Ms Moreland was discharged on Xarelto, having a 30 day free pack and she stated that once the 30 days was a up she began to take aspirin 325 daily. We discussed that according to her discharge summary in March, cardiology was going to work on getting assistance for her for Xarelto or put her on Coumadin and she stated "they never called me and told me, I had never had made went to an appointment, so I had started taking aspirin." PAST MEDICAL HISTORY: 1. Atrial fibrillation. 2. Hypertension. 3. Diastolic heart failure with an ejection fraction of 68% per echo in November. PAST SURGICAL HISTORY: Appendectomy, bilateral tubal ligation. SOCIAL HISTORY: She is . She has 2 children. She works at [employer]. She smokes about half a pack a day. She denies alcohol or illicit drug use. FAMILY HISTORY: Notable for diabetes mellitus type 2. She denies heart disease, hypertension in first-degree relatives. ALLERGIES: No known drug allergies. HOME MEDICATIONS: 1. Cardia XT 120 mg p.o. daily. 2. Sotalol 80 mg p.o. b.i.d. 3. Spironolactone 12.5 mg p.o. daily. REVIEW OF SYSTEMS: Discussed with patient with pertinent positives stated in the HPI. She denied any syncope or dizziness, any headache, any nausea, vomiting, diarrhea, constipation, shortness of breath, cough, fever, chills, night sweats, recent weight loss or weight gain, any hematuria, dysuria, frequency, urgency. PHYSICAL EXAMINATION: GENERAL: This is a 58-year-old female who is lying on the stretcher in the emergency room in no distress. VITAL SIGNS: Blood pressure is 180/90 with a heart rate of 96, respirations are 16, temperature is 98.1 degrees with room air saturations 96 to 98 percent. EYES: Pupils equal, round, react to light. EOMs are intact. Sclerae are anicteric. HEENT: Head is normocephalic, atraumatic. Mucous membranes are moist. NECK: Supple with trachea midline. No JVD. CARDIOVASCULAR: Regular rate and rhythm. S1 and S2 appreciated. She has no lower extremity edema. Calves are nontender bilateral with peripheral pulses palpable x4 extremities. PULMONARY: Breath sounds are clear. No increased work of breathing noted. Chest rises and falls with symmetric respiration. Chest wall is nontender to palpation. GASTROINTESTINAL: Abdomen is soft, nontender, nondistended with bowel sounds in all 4 quadrants. GENITOURINARY: No CVA or suprapubic tenderness. NEUROLOGIC: She is alert and oriented x3. SKIN: Warm and dry. LABS: WBC is 8.3 with hemoglobin 15.8, hematocrit 48.8, platelets 217,000. Sodium 137, potassium 4, BUN 12, creatinine 0.9 with a glucose of 97, magnesium is 1.6. Troponin is less than 0.010. Chest x-ray: Pulmonary vascularity is slightly prominent. Heart size is not enlarged. EKG reveals sinus rhythm at a rate of 98. ASSESSMENT AND PLAN: 1. Atrial fibrillation with rapid ventricular response, placed on telemetry. We will restart Cardizem and sotalol. We will add Xarelto 20 mg p.o. with supper. We will consult [employer] to assist with assistance in affordability for Xarelto or Eliquis. 2. Diastolic dysfunction. Daily weights, input and output. We will restart her Aldactone. 3. Hypertension medicines stated above. We will monitor vital signs. 4. Gastrointestinal prophylaxis use Prilosec. 5. This plan was discussed with Dr. Vargas. Further treatments pending hospital course. Dictated by BERENICE Wilde for Kyle Vargas MD cc: BERENICE Wilde MD
[2019-08-03] MEDS: CARDIZEM CD PO SCH (15:15)
[2019-08-03] MEDS: BETAPACE PO SCH ×2 (15:16→19:59)
[2019-08-03 15:46] LABS: ALLEN TEST YES; BE 1.6 mmoll (-3.0-3.0); BLOOD TYPE ARTERIAL; HCO3-(ACT) 25.9 mmoll (20.0-26.0); PCO2(98.6) 42 mmHg (35-45); PO2(98.6) 72 mmHg (60-100); SAMPLE BLOOD; SAO2 96.4 % (95.0-100.0); THB 15.8 g/dL (11.5-17.4); pH(98.6) 7.41 (7.35-7.45)
[2019-08-03 15:49] LABS: MODALITY ROOM AIR
--- NOTE | 2019-08-03 16:13 | HISTORY AND PHYSICAL ---
ADDENDUM TO HISTORY AND PHYSICAL: Ms. Dobson is a 58-year-old female who was discharged from the hospital on 03/18/2019 because of atrial fibrillation, RVR, hypertension, acute kidney injury, tobacco use. She seems to have been doing well. She said after she ran out of the Xarelto, she has been on aspirin because her insurance would not cover her Xarelto. She was doing well until this morning. She felt her heart was palpitating extremely fast. She called the EMS and she was brought into the emergency room where she was found to be slightly tachycardic, but she was in atrial fibrillation RVR on the tele tracing. She has been admitted for overnight observation. OBJECTIVE: Her current vitals: Blood pressure is 146/82, pulse of 80, respirations 16, temperature 98 degrees.General: Ms Dobson is a 58-year-old female. She is in bed no distress. HEENT: Mucosa is pink, slightly dry. Anicteric. Acyanotic. Neck: Supple. Chest: Clear. Cardiovascular: Regular rate and rhythm. No murmurs. Abdomen: Soft. Extremities: No pedal edema. The patient has some mild clubbing. HEAD INSPECTOR AND CENTER MARKER: Patient is awake, alert, and oriented. LABORATORY DATA: Hemoglobin is 15.8 with a hematocrit of 48.8. ASSESSMENT: 1. Atrial fibrillation with rapid ventricular response on presentation which has spontaneously converted. Patient has been started back on her home medications. 2. Clinical volume depletion. We are going to continue with the gentle hydration overnight. 3. Polycythemia, most likely reactive. We are going to get an ABG tomorrow morning to rule out any chronic hypercarbia/hypoxemia. 4. Chronic tobacco use. 5. Suspected underlying chronic obstructive pulmonary disease. The patient is currently not symptomatic. 6. Medication noncompliance due to on coverage. We will consult Social Work for medication assistance. cc: Kyle Vargas MD
[2019-08-03] MEDS: 1/2 NS + KCL 20 MEQ 1,000 ML IV SCH (17:00)
[2019-08-03] MEDS ORDERED: XARELTO PO SCH (17:00)
[2019-08-04 05:14] LABS: ALLEN TEST YES; BLOOD TYPE ARTERIAL; HCO3-(ACT) 25.5 mmoll (20.0-26.0); METHB 0.7 % (0.0-1.5); O2(CT) 19.4 mL/dL (15.0-23.0); O2HB 91.4 % (95.0-99.0); PCO2(98.6) 45 mmHg (35-45); PO2(98.6) 70 mmHg (60-100); SAMPLE BLOOD; SAO2 95.6 % (95.0-100.0); THB 15.1 g/dL (11.5-17.4); pH(98.6) 7.38 (7.35-7.45)
[2019-08-04 05:15] LABS: MODALITY ROOM AIR
[2019-08-04] MEDS: 1/2 NS + KCL 20 MEQ 1,000 ML IV SCH (06:29)
[2019-08-04] MEDS ORDERED: PRILOSEC PO SCH (07:00)
[2019-08-04 07:18] LABS: HEMATOCRIT 45.8 % (37.0-47.0); HEMOGLOBIN 14.8 g/dL (12.0-16.0); MCH 32.5 PG (27-31); MCHC 32.3 g/dL (33-37); MCV 100.4 FL (81-99); MPV 10.1 FL (7.4-10.4); RBC 4.56 XMIL (4.2-5.4); RDW 13.9 % (11.5-14.5); WBC 6.56 X1000 (4.8-10.8)
[2019-08-04 07:42] LABS: CALCIUM 8.7 mg/dL (8.8-10.2); POTASSIUM 4.1 mmol/L (3.5-5.1)
[2019-08-04 07:49] VITALS: BP 121/72
--- NOTE | 2019-08-04 07:58 | EKG Report ---
Test Performed on : 08/03/2019 09:21:56 AM Test Reason : CHEST TIGHTNESS Blood Pressure : / mmHG Vent. Rate : 098 BPM Atrial Rate : 098 BPM P-R Int : 160 ms QRS Dur : 072 ms QT Int : 344 ms P-R-T Axes : 067 004 081 degrees QTc Int : 439 ms Normal sinus rhythm. Septal infarct , age undetermined Abnormal ECG When compared with ECG of 18-MAR-2019 09:27, ST now depressed in Lateral leads Unconfirmed Result
[2019-08-04] MEDS ORDERED: ALDACTONE PO SCH (09:00)
[2019-08-04] MEDS: CARDIZEM CD PO SCH (09:34)
[2019-08-04] MEDS: BETAPACE PO SCH (09:34)
--- NOTE | 2019-08-05 14:19 | DISCHARGE SUMMARY ---
ADMISSION DATE: 08/03/2019 DISCHARGE DATE: 08/04/2019 DISPOSITION: Home FOLLOWUP: Dr. Santiago CONSULTATIONS DURING ADMISSION: None. IMAGING STUDIES OF SIGNIFICANCE: Chest x-ray done on 08/03/2019 shows stable no acute disease. ADMISSION DIAGNOSES: 1. Atrial fibrillation with rapid ventricular response. 2. Diastolic dysfunction. 3. Hypertension. DIAGNOSES AT THE TIME OF DISCHARGE: 1. Atrial fibrillation with rapid ventricular response on presentation which spontaneously converted. 2. Clinical volume depletion. 3. Reactive polycythemia. 4. Chronic tobacco use. 5. Suspected underlying chronic obstructive pulmonary disease. 6. Medication noncompliance. PRESENTING COMPLAINT: Palpitations. HISTORY OF PRESENTING COMPLAINT: Ms Dobson is a 58-year-old female who is known to have atrial fibrillation, hypertension, is supposed to be on Xarelto as an anticoagulant, came to the emergency department because of palpitation was found to be in atrial fibrillation RVR was given was given a couple doses of IV Cardizem and the atrial fibrillation spontaneously converted into sinus. Ms. Dobson referred that she has not been able to afford the Xarelto. She was also minimally dry, so she was admitted for medical management and for case management and social work medication assistance. HOSPITAL COURSE: Ms. Dobson was admitted to the medical floor, was adequately fluid resuscitated, was started back on her medications including Xarelto. Over the course of the 24 hour stay she remained in sinus rhythm with normal rate. She refers to be completely asymptomatic. When I saw her this morning she refers to be doing well and she was waiting on Social Work for medication assistance. I understand from the social work note that the patient did not need any assistance. Ms. Dobson is therefore discharged in stable condition. 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 At the time of discharge her vitals: Blood pressure 121/72, pulse of 63, respiration is 19, temperature 98.3 degrees patient is saturating 96% on room air. DISCHARGE MEDICATIONS: 1. Sotalol 80 mg b.i.d. 2. Spironolactone 12.5 mg p.o. daily. 3. Diltiazem 120 p.o. daily. 4. Aspirin. Xarelto to 20 mg p.o. daily has been started. TIME SPENT FOR DISCHARGE: 33 minutes. cc: Kyle Vargas MD
== END 2019-08-04 12:03 | disposition home or self-care (01) ==
LOC: SUPCPDRO → EDIPHOLD 08:17 → ED 08:17 → 3N 16:12
PROVIDERS: ATTEND Internal Medicine

== ENCOUNTER 2019-10-14 13:48 | Inpatient (IN) ==
--- NOTE | 2019-10-14 14:17 | PROVIDER DOCUMENTATION ---
HPI-Cardiac General - General Stated Complaint: PALPITATIONS Time Seen by Provider: 10/14/19 14:02 Source: patient Allergies/Adverse Reactions: Patient Allergies Allergy/AdvReac Type Severity Reaction Status Date / Time No Known Allergies Allergy Verified 12/01/18 15:16 Home Medications: Home Medication List Medication Instructions Recorded Confirmed Last Taken Type Diltiazem HCl [Cartia Xt] 120 mg PO DAILY 30 Days #30 03/18/19 08/03/19 08/02/19 05:30 Rx cap.er.24h Sotalol [Betapace] 80 mg PO BID 30 Days #60 tab 03/18/19 08/03/19 08/02/19 05:30 Rx Spironolactone [Aldactone] 12.5 mg PO DAILY 30 Days #30 tab 03/18/19 08/03/19 08/02/19 05:30 Rx Rivaroxaban [Xarelto] 20 mg PO WSUPPER #120 tab 08/04/19 Unknown Rx - History of Present Illness-Cardiac Nature of Presenting Problem: 58 YO F pmh for afib on xarelto and follows with Dr. Santiago presents with complaints of palpitations since 1230pm on today. She c/o weakness in her upper extremities b/l, pressure in her chest, and headache and SOB. She denies any other recent illness or URI symptoms. Pt states her last time for going into afib was 2 months ago. Location: reports: substernal Quality of Pain: reports: aching, pressure Severity in ED: moderate Onset/Duration: 1-3 hours ago Timing: still present, constant Context/Activities at Onset: reports: other (just got off work and going to bed) Modifying Factors: improves with: nothing Palpitation Quality: irregular History of arrythmia: reports: A-Fib Associated Symptoms: reports: shortness of breath. denies: abdominal pain, dizziness, fever/chills, syncope Similar Symptoms Previously?: Yes Recently Seen Here or By Another Healthcare Provider: Yes Review of Systems - Adult - REVIEW OF SYSTEMS - ADULT Constitutional: denies: chills, fever Eyes: reports: no symptoms reported Ears, Nose, Mouth & Throat: reports: no symptoms reported Cardiovascular: reports: see HPI, palpitations Respiratory: reports: see HPI, shortness of breath. denies: cough Gastrointestinal: reports: no symptoms reported Genitourinary: reports: no symptoms reported Musculoskeletal: reports: no symptoms reported Integumentary: reports: no symptoms reported Neurological: reports: no symptoms reported Past History - Adult - PAST MEDICAL HISTORY-ADULT Review of Records: reports: Old Records Reviewed, Medications Reviewed Cardiovascular: reports: A-Fib Respiratory: reports: denies history Gastrointestinal: reports: denies history Musculoskeletal: reports: denies history - IMMUNIZATION STATUS Childhood Immunizations: See Nurse Assessment Flu Vaccine: See Nurse Assessment Physical Exam-General - PHYSICAL EXAM-ADULT Initial Vital Signs Reviewed: Yes - CONSTITUTIONAL General Appearance: alert, mild distress (from pain and weakness) - EYES Eyes: PERRL/EOMI, pink conjunctivae - HEAD, EARS, NOSE, MOUTH & THROAT HENMT: normocephalic/atraumatic, moist mucous membranes - NECK Neck: supple - RESPIRATORY Respiratory: lungs clear, normal breath sounds, no pleuratic chest pain, no respiratory distress, no accessory muscle use - CARDIOVASCULAR Cardiovascular: tachycardia, irregularly irregular - GASTROINTESTINAL (ABDOMEN) Abdominal Exam: non tender, soft - MUSCULOSKELETAL Back Exam: no CVA tenderness Extremity: normal inspection, no pedal edema - SKIN Integumentary: normal color, normal turgor, warm/dry - NEUROLOGIC Neurologic: grossly normal - PSYCHIATRIC Psych/Mental Status: normal mood/affect, oriented x 3 - HEART Score HEART Score: History: Slightly Suspicious HEART Score: Age: 45-65 Years HEART Score: Risk Factors for Atherosclerotic Disease: 1 or 2 Risk Factors Progress - PLAN OF CARE/RESULTS Progress/Plan/Lab Results: Vital Signs - 8 hr 10/14/19 14:34 Temperature 97.5 F L Pulse Rate 134 H Respiratory Rate 26 H Blood Pressure 149/80 O2 Sat by Pulse Oximetry 96 10/14/19 14:35 Influenza Screen - Final Nasopharyngeal Laboratory Results - last 24 hr 10/14/19 10/14/19 10/14/19 14:13 14:13 14:13 WBC 9.38 RBC 4.93 Hgb 16.0 Hct 48.6 H MCV 98.6 MCH 32.5 H MCHC 32.9 L RDW Std Deviation 13.8 Plt Count 229 MPV 10.7 H Neut % (Auto) 63.4 Lymph % (Auto) 24.6 [place] % (Auto) 9.8 H Eos % (Auto) 1.8 Baso % (Auto) 0.4 Neut # (Auto) 5.94 Lymph # (Auto) 2.31 [place] # (Auto) 0.92 H Eos # (Auto) 0.17 Baso # (Auto) 0.04 Sodium 142 Potassium 4.2 Chloride 105 Carbon Dioxide 24 L Anion Gap 13 BUN 16 Creatinine 0.9 Estimated GFR/1.73 m2 > 60 BUN/Creatinine Ratio 18 Glucose 189 H Calculated Osmolality 289 Calcium 9.4 Magnesium 1.6 Total Bilirubin 0.29 AST 21 ALT 23 Alkaline Phosphatase 91 Troponin T High Sens [id number] Pept 489 H Total Protein 6.4 Albumin 4.0 Globulin 2.4 Albumin/Globulin Ratio 1.7 TSH 10/14/19 10/14/19 14:13 14:13 WBC RBC Hgb Hct MCV MCH MCHC RDW Std Deviation Plt Count MPV Neut % (Auto) Lymph % (Auto) [place] % (Auto) Eos % (Auto) Baso % (Auto) Neut # (Auto) Lymph # (Auto) [place] # (Auto) Eos # (Auto) Baso # (Auto) Sodium Potassium Chloride Carbon Dioxide Anion Gap BUN Creatinine Estimated GFR/1.73 m2 BUN/Creatinine Ratio Glucose Calculated Osmolality Calcium Magnesium Total Bilirubin AST ALT Alkaline Phosphatase Troponin T High Sens 14 [id number]-Nczwswgcxmq Pept Total Protein Albumin Globulin Albumin/Globulin Ratio TSH 3.30 Orders Category Date Time Status Cardiac Monitoring DIRECTED Care 10/14/19 14:16 Active CHEST-1 VIEW [RAD] Stat Exams 10/14/19 14:16 Completed CBC WITH ELECTRONIC DIFF [HEME] Stat Lab 10/14/19 14:13 Completed COMPREHENSIVE METABOLIC PANEL [CHEM] Stat Lab 10/14/19 14:13 Completed Flu Swab [INFLUENZA SCREEN A/B] Stat Lab 10/14/19 14:35 Completed MAGNESIUM [CHEM] Stat Lab 10/14/19 14:13 Completed PRO B-NATRIURETIC PEPTIDE Stat Lab 10/14/19 14:13 Completed TROPONIN T HIGH SENSITIVITY Stat Lab 10/14/19 14:13 Completed TSH Stat Lab 10/14/19 14:13 Completed URINALYSIS W/POSS RFLX CULT [URINALYSIS] Stat Lab 10/14/19 14:24 Uncollected 0.9% Sodium Chloride Inj [Ns] 1,000 ml Med 10/14/19 14:27 Discontinued IV 999 mls/hr Diltiazem 100 mg/Ns [Cardizem 100 mg/Ns] Med 10/14/19 15:00 Active 100 mg in 100 ml IV As Directed mls/hr Diltiazem [Cardizem] Med 10/14/19 14:23 Discontinued 20 mg IV NOW ONE Levalbuterol Neb [Xopenex Neb] Med 10/14/19 15:10 Discontinued 0.63 mg INH NOW ONE Magnesium Gluconate Med 10/14/19 15:24 Discontinued 500 mg PO NOW ONE Morphine Med 10/14/19 14:41 Discontinued 4 mg IV NOW ONE Sodium Chloride 0.9% Neb [Ns Neb] Med 10/14/19 15:15 Active 5 ml INH DIRECTED Aerosol Treatments Routine Oth 10/14/19 15:10 Active Aerosol Treatments Stat Oth 10/14/19 15:10 Active Oxygen Device Stat Oth 10/14/19 14:16 Active EKG [EKG] Stat Ther 10/14/19 14:15 Draft Result Diagrams: 10/14/19 14:13 10/14/19 14:13 - REASSESSMENT Reassessment #1 Time Reassessed: 15:04 Status: improving (pt with improved HR after cardizem push. will start on cardizem drip. pain improved. cancelled morphine.) - EKG 1 Time of EKG reading by physician:: 14:33 EKG Read and Signed by:: Candis Roach EKG Interpretation (*Must complete 3 of following elements*): Abnormal Rate: 134 Rhythm: a fib with rvr ST Wave: non-specific ST changes 2 Time of EKG reading by physician:: 14:55 EKG Read and Signed by:: Candis Roach EKG Interpretation (*Must complete 3 of following elements*): Abnormal Rate: 103 Rhythm: afib with rvr [place]: normal ST Wave: non-specific ST changes Prior EKG Comparison: changes noted (ST changes not new from previous EKG 2 mos ago, however pt is still in afib. prior EKG showed pt NSR.) - XRAY 1 XRAY Study: Chest Impression: See EMR Report (EXAM: CHEST-1 VIEW 10/14/2019 HISTORY: palpitations TECHNIQUE: AP portable upright at 1427 COMMENT: There is increased pulmonary vascularity. There is questionable interstitial pulmonary edema. Com pared to 08/03/2019 the latter appears somewhat worse. IMPRESSION: Mild pulmonary edema. Electronically signed by Michael Padron 10/14/2019 2:30 PM) - CONSULTS/PCP/HOSPITALIST Notification #1 *Consult/PCP/Hospitalist*: Dr. Cunningham Time Discussed: 15:41 Consult Disposition: Will see in ED, Admit Departure - Departure Date of Disposition Decision: 10/14/19 Time of Disposition Decision: 15:31 DIAGNOSIS: Atrial fibrillation with RVR Disposition: ADMITTED INPATIENT 09 Certified Medical Emergency: Emergent Condition: Stable Referrals and Follow-Ups: Anatoliy Santiago MD [Primary Care Provider] - - Critical Care Note This patient required my direct & personal management of CC.: Yes Total Time (mins): 35 Critical Care Statement: This patient required my direct personal management to treat or rule out processes, the absence of which, could potentiallly result in sudden, clinically significant life or limb threatening deterioration. Attestation - Physician/ SCOTT Attestation Patient care was provided by Advanced Practice Provider:: No The physician spent face to face time with patient:: Yes Advanced Practice Provider documentation review:: Supervising physician onsite and consulted in the evaluation and care of this patient. The physician did have a face to face encounter with the patient.
[2019-10-14] MEDS ORDERED: CARDIZEM IV ONE (14:23)
[2019-10-14] MEDS ORDERED: NS 1,000 ML IV ONE (14:27)
--- NOTE | 2019-10-14 14:33 | Diag Imaging Result Doc PS360 ---
EXAM: CHEST-1 VIEW 10/14/2019 HISTORY: palpitations TECHNIQUE: AP portable upright at 1427 COMMENT: There is increased pulmonary vascularity. There is questionable interstitial pulmonary edema. Compared to 08/03/2019 the latter appears somewhat worse. IMPRESSION: Mild pulmonary edema. Electronically signed by Michael Padron 10/14/2019 2:30 PM
--- NOTE | 2019-10-14 14:34 | EKG Report ---
Test Performed on : 10/14/2019 2:31:11 PM Test Reason : CP Blood Pressure : / mmHG Vent. Rate : 134 BPM Atrial Rate : 141 BPM P-R Int : 000 ms QRS Dur : 072 ms QT Int : 284 ms P-R-T Axes : 000 -12 128 degrees QTc Int : 424 ms Atrial fibrillation. with rapid ventricular response. Septal infarct (cited on or before 03-AUG-2019) ST & T wave abnormality, consider lateral ischemia Abnormal ECG When compared with ECG of 03-AUG-2019 09:21, (Unconfirmed) Atrial fibrillation. has replaced Sinus rhythm. Unconfirmed Result
[2019-10-14] MEDS ORDERED: MORPHINE IV ONE (14:41)
[2019-10-14 15:08] LABS: AGAP 13; ALB/GLOB RATIO 1.7; ALKALINE PHOSPHATASE 91 U/L (32-104); BASO# 0.04 X1000 (0.0-0.2); BASO% 0.4 % (0.0-0.8); BUN 16 mg/dL (8-22); CALCIUM 9.4 mg/dL (8.8-10.2); CHLORIDE 105 mmol/L (98-107); COSMO 289; CREATININE 0.9 mg/dL (0.5-0.9); EOS# 0.17 X1000 (0.0-0.7); EOS% 1.8 % (0.0-10.0); ESTIMATED GFR > 60; GLUCOSE 189 mg/dL (70-104); GOT 21 U/L (10-30); GPT 23 U/L (10-36); HEMATOCRIT 48.6 % (37.0-47.0); LYMPH# 2.31 X1000 (1.2-3.4); LYMPH% 24.6 % (20.5-51.1); MAGNESIUM 1.6 mg/dL (1.5-2.7); MCH 32.5 PG (27-31); MCHC 32.9 g/dL (33-37); MCV 98.6 FL (81-99); MONO# 0.92 X1000 (0.11-0.59); MONO% 9.8 % (1.7-9.3); MPV 10.7 FL (7.4-10.4); NEUT# 5.94 X1000 (1.4-6.5); NEUT% 63.4 % (42.2-75.2); PLT 229 X1000 (130-400); POTASSIUM 4.2 mmol/L (3.5-5.1); RBC 4.93 XMIL (4.2-5.4); RDW 13.8 % (11.5-14.5); SODIUM 142 mmol/L (136-145); TCO2 24 mmol/L (25-35); TOTAL BILIRUBIN 0.29 mg/dL (0.20-1.00); TOTAL PROTEIN 6.4 g/dL (6.3-8.3); WBC 9.38 X1000 (4.8-10.8)
[2019-10-14] MEDS ORDERED: XOPENEX NEB INH ONE (15:10)
[2019-10-14] MEDS: CARDIZEM 100 MG/NS 100 MG/100 ML IVPB IV SCH ×2 (15:14→23:20)
[2019-10-14] MEDS ORDERED: NS NEB INH SCH (15:15)
[2019-10-14] MEDS ORDERED: MAGNESIUM GLUCONATE PO ONE (15:24)
[2019-10-14 16:02] LABS: URINE SOURCE CATH
[2019-10-14 16:17] LABS: BILIRUBIN URINE NEGATIVE (NEGATIVE); BLOOD URINE TRACE (NEGATIVE); COLOR YELLOW; GLUCOSE URINE NEGATIVE (NEGATIVE); KETONE URINE NEGATIVE (NEGATIVE); LEUKOCYTES URINE NEGATIVE (NEGATIVE); NITRITE URINE NEGATIVE (NEGATIVE); PH URINE 5.5; PROTEIN URINE NEGATIVE (NEGATIVE); SP GRAVITY URINE 1.018; TURBIDITY URINE CLEAR (CLEAR); UROBILINOGEN URINE NORMAL (NORMAL)
[2019-10-14 16:18] LABS: UR EPITHELIAL CELLS <10 /HPF (<10); URINE BACTERIA NEGATIVE /HPF; URINE RBC <10 /HPF (<10); URINE WBC <10 /HPF (<10)
[2019-10-14] MEDS: XARELTO PO SCH (16:37)
[2019-10-14] MEDS ORDERED: LASIX IV ONE (16:38)
--- NOTE | 2019-10-14 19:02 | HISTORY AND PHYSICAL ---
PRIMARY CARE PHYSICIAN: None. SOUND RECORDING TECHNICIAN: Dr. Santiago. CHIEF COMPLAINT: Palpitations and shortness of breath with pressure in her chest all that began around 12:30 p.m. today and progressively worsened. HISTORY OF PRESENTING ILLNESS: This is a 58-year-old female who presents to [facility] with complaints of palpitations, pressure in her chest and shortness of breath that progressively worsened since around 12:30 p.m. today. Has a history of atrial fibrillation and states that she knew the palpitations were not normal so she came to the emergency room. When she arrived her EKG showed atrial fibrillation with RVR at 134, she was given Cardizem 20 mg IV x1 and placed on a Cardizem drip. She has now converted back to a normal sinus rhythm in the upper 60s, low 70s, states she is feeling better but she will be admitted for further evaluation and treatment. PAST MEDICAL HISTORY: Of atrial fibrillation. PAST SURGICAL HISTORY: Appendectomy, tonsillectomy and D and C. FAMILY HISTORY: Reviewed and noncontributory. SOCIAL HISTORY: She currently lives alone, smokes 1 to 2 cigarettes a day and has done so since she was 16 years old. Denied any alcohol or illicit drug use. ALLERGIES: She has no known drug allergies. HOME MEDICATIONS: A current list will need to be obtained, reconciled, reviewed and restarted as appropriate. Will place an order for nursing to update and confirm home medications. LABORATORY DATA: Showed a white blood cell count of 9.38, hemoglobin 16, hematocrit 48.6, platelets 229,000. Sodium 142, potassium 4.2, chloride 105, CO2 24, BUN of 16, creatinine 0.9, glucose 189, magnesium 1.6, troponin T high sensitivity of 14. ProBNP of 489, TSH 3.30. Urinalysis was negative. Chest x-ray showed mild pulmonary edema. EKG showed atrial fibrillation with RVR at 134. REVIEW OF SYSTEMS: She denied any fever, chills, blurred vision, dizziness. She had chest pressure, palpitation, shortness of breath, denied any abdominal pain, constipation, diarrhea, burning or hurting with urination. PHYSICAL EXAMINATION: On arrival she had a temperature of 97.5 degrees, pulse 134, respirations 26, blood pressure 149/80, saturating 96% on 2 L via nasal cannula. GENERAL: This is a 58-year-old female who is lying in the bed and answers questions appropriately. HEENT: Normocephalic, atraumatic. Normal ENT inspection. Oropharynx and nares are clear. Pupils are equal, round, reactive to light, accommodation. Extraocular movements are intact. NECK: Normal inspection, normal range of motion. LUNGS: Clear to auscultation bilaterally with equal lung expansion and chest wall movement. HEART: Regular rate and rhythm. No murmurs, rubs, or gallops. ABDOMEN: Soft, nontender, nondistended. Bowel sounds are present x4 quadrants. MUSCULOSKELETAL: Has 5/5 strength x4 extremities. NEUROLOGICAL: The cranial nerves 2-12 are grossly intact. ASSESSMENT: 1. Atrial fibrillation with rapid ventricular response. 2. Tobacco abuse. OUR PLAN: She will be admitted to the PVC unit, placed on telemetry, O2 per protocol. She is on a Cardizem drip and will most likely be weaned as she has converted to normal sinus rhythm. We will consult Cardiology, do an echocardiogram in the a.m. Recheck a CBC, BMP in the a.m., place on SCDs for DVT prophylaxis, date and confirm home medications. Further orders after seen by attending and by wellness consultant. Dictated by BERENICE Kent for Dirk Montes MD cc: BERENICE Kent MD
[2019-10-14] MEDS ORDERED: ZOFRAN IV PRN (19:26)
[2019-10-14] MEDS ORDERED: TYLENOL PO PRN (19:26)
--- NOTE | 2019-10-14 20:26 | HISTORY AND PHYSICAL ---
ADDENDUM: Patient seen and examined by me face to face. All the laboratory, vital signs, and images were reviewed. The patient presented to the emergency department due to palpitations. She has been hospitalized multiple times and actually she was discharged on 08/04/2019 due to atrial fibrillation, RVR. She is coming again with atrial fibrillation, RVR. At this moment, x-ray showed some pulmonary edema. At the emergency department, she was placed on a Cardizem drip and it looks like she is now back in sinus rhythm. She is a smoker and apparently she has been cutting down, and now she is smoking 2 cigarettes per day or so. Ms. Dobson works mostly during the night and I am not quite sure if she takes her medications as prescribed. She has been on Xarelto and based on the discharge summary, she is also on sotalol 80 mg b.i.d., spironolactone, diltiazem. Cardiology Department has been consulted. I will wait for their recommendations. I will put her back on Xarelto. I agree with the rest of the nurse practitioner's assessment and plan. cc: Dirk Montes MD
[2019-10-15 06:42] LABS: BASO# 0.05 X1000 (0.0-0.2); BASO% 0.6 % (0.0-0.8); EOS# 0.14 X1000 (0.0-0.7); EOS% 1.8 % (0.0-10.0); HEMATOCRIT 46.3 % (37.0-47.0); HEMOGLOBIN 14.6 g/dL (12.0-16.0); LYMPH# 2.79 X1000 (1.2-3.4); LYMPH% 35.9 % (20.5-51.1); MCH 31.4 PG (27-31); MCHC 31.5 g/dL (33-37); MCV 99.6 FL (81-99); MONO# 0.59 X1000 (0.11-0.59); MONO% 7.6 % (1.7-9.3); MPV 10.4 FL (7.4-10.4); NEUT# 4.21 X1000 (1.4-6.5); NEUT% 54.1 % (42.2-75.2); PLT 201 X1000 (130-400); RBC 4.65 XMIL (4.2-5.4); RDW 13.7 % (11.5-14.5); WBC 7.78 X1000 (4.8-10.8)
[2019-10-15 06:44] LABS: AGAP 10; BUN 13 mg/dL (8-22); CALCIUM 8.8 mg/dL (8.8-10.2); CHLORIDE 103 mmol/L (98-107); COSMO 280; CREATININE 0.9 mg/dL (0.5-0.9); ESTIMATED GFR > 60; GLUCOSE 81 mg/dL (70-104); POTASSIUM 3.9 mmol/L (3.5-5.1); SODIUM 141 mmol/L (136-145); TCO2 28 mmol/L (25-35)
--- NOTE | 2019-10-15 08:32 | EKG Report ---
Test Performed on : 10/14/2019 2:53:38 PM Test Reason : ED. NO EKG ORDER FOR MUSE Blood Pressure : / mmHG Vent. Rate : 103 BPM Atrial Rate : 133 BPM P-R Int : 000 ms QRS Dur : 076 ms QT Int : 372 ms P-R-T Axes : 000 -04 105 degrees QTc Int : 487 ms Atrial fibrillation. with rapid ventricular response. Septal infarct (cited on or before 03-AUG-2019) Abnormal ECG When compared with ECG of 14-OCT-2019 14:31, (Unconfirmed) T wave inversion no longer evident in Lateral leads Unconfirmed Result
[2019-10-15] MEDS: CARDIZEM CD PO SCH (08:56)
[2019-10-15] MEDS: ALDACTONE PO SCH (08:56)
[2019-10-15] MEDS ORDERED: BETAPACE PO SCH (09:00)
--- NOTE | 2019-10-15 09:36 | PROGRESS NOTE ---
DATE: 10/15/2019 SUBJECTIVE: The patient is feeling much better compared with yesterday. At this moment, the echocardiogram is pending, as well as the Cardiology evaluation. I will stop the Cardizem drip, and I will put her on her home medications to see how she does. She is on sotalol, diltiazem, spironolactone and Xarelto. OBJECTIVE: Vital Signs: Temperature 97.9 degrees, pulse 82, respiratory rate 20, blood pressure 136/72, and oxygen saturation 95% on room air. HEENT: Head normocephalic. No trauma. PERRLA. Neck: Supple. No JVD. No masses. Central trachea. Chest: Clear to auscultation with some crepitus at the bases, probably some crackles as well. Abdomen: Soft, nontender, and nondistended. No hepatosplenomegaly. Extremities: No edema. No clubbing. No cyanosis. Cardiovascular: RRR. Neurological: The patient is awake and alert. She is oriented x3. No focal deficits. LABORATORY: WBC 7.7, hemoglobin 14.6, hematocrit 46.3, and platelets 201,000. Sodium 141, potassium 3.9, chloride 103, bicarbonate 28, BUN 13, creatinine 0.9 glucose 81, and calcium 8.8. ASSESSMENT AND PLAN: 1. Atrial fibrillation with rapid ventricular response. This patient was placed on Cardizem drip which I will stop, and put her back on home medications including diltiazem, sotalol, spironolactone and Xarelto. She seems to be feeling much better. She received a dose of Lasix yesterday because of some pulmonary edema. 2. Pulmonary edema. Since she seems to be feeling much better, I will wait for an echocardiogram to rule out any other conditions. 3. Tobacco use. This patient has been highly advised against tobacco use. I will continue with daily cessation education. 4. Obesity with a body mass index of 34.9. Diet has been discussed. cc: Dirk Montes MD
--- NOTE | 2019-10-15 11:58 | EKG Report ---
Test Performed on : 10/15/2019 11:44:45 AM Test Reason : afib Blood Pressure : / mmHG Vent. Rate : 064 BPM Atrial Rate : 064 BPM P-R Int : 176 ms QRS Dur : 074 ms QT Int : 468 ms P-R-T Axes : 068 008 095 degrees QTc Int : 482 ms Normal sinus rhythm. Septal infarct (cited on or before 03-AUG-2019) Abnormal ECG When compared with ECG of 14-OCT-2019 14:53, (Unconfirmed) Sinus rhythm. has replaced Atrial fibrillation. Vent. rate has decreased BY 39 BPM T wave inversion more evident in Lateral leads Confirmed by Chaitanya PACHECO, Ayan Bernard ([id number]) on 10/16/2019 12:23:17 PM
[2019-10-15] MEDS: XARELTO PO SCH (17:02)
--- NOTE | 2019-10-15 17:03 | ECHO REPORT ---
ORDER DATE: 10/15/2019 ECHOCARDIOGRAPHIC MEASUREMENTS: 1. Interventricular septum 1.3. 2. Left ventricular posterior wall 1.0. Diastolic diameter 4.3. 3. Left atrium 4.8. Tricuspid valve is normal. 4. Aortic valve leaflets are trileaflet. 5. Mitral valve is normal. 6. Pulmonic valve is normal. There is mild pulmonary regurgitation. Moderate band noted in the right ventricle, normal variant. Normal left ventricular cavity size and function. There is mild tricuspid regurgitation. Peak velocity across the tricuspid valve was 3 m/sec. 7. Pulmonary artery systolic pressure of 46 mmHg. 8. Normal left ventricular cavity size. Mild left ventricular hypertrophy. Estimated ejection fraction of 65%. 9. There is mild mitral regurgitation. 10. Atrial fibrillation noted. 11. Interatrial septum is aneurysmal. 12. Peak velocity across the aortic valve less than 2 m/sec. There is no aortic stenosis or regurgitation. 13. There is no pericardial effusion or obvious intracardiac mass or thrombus seen. 14. Anterior echo-free space suggestive of pericardial fat pad noted. cc: MD Cora Julio CRNP
--- NOTE | 2019-10-15 18:30 | CONSULTATION ---
DATE OF CONSULTATION: 10/15/2019 IMPRESSION: 1. Recurrent paroxysmal atrial fibrillation despite sotalol 80 mg p.o. b.i.d. which spontaneously converted back to sinus rhythm. 2. Paroxysmal atrial fibrillation. 3. Hypertensive cardiovascular disease. 4. Diastolic left ventricular dysfunction. 5. Obesity. 6. Tobacco abuse. RECOMMENDATIONS: 1. Continue telemetry observation. 2. Increase sotalol to 120 mg p.o. b.i.d. and observe another 24 hours for potential pro arrhythmias. 3. Patient to followup with her regular medical officer psychiatry Dr. Santiago. 4. Following discharge to consider possible need for repeat noninvasive cardiac studies. HISTORY: This is a 58-year-old white female with past history of paroxysmal atrial fibrillation, hypertensive cardiovascular disease, diastolic left ventricular dysfunction, chronic cigarette use and obesity was admitted to the emergency room yesterday with atrial fibrillation with rapid ventricular rate. She has history of paroxysmal atrial fibrillation which has been suppressed with sotalol. She works at [employer] working the evening shift. She had a fairly busy night 2 nights ago making bread. With that increased activity, she felt some mild shortness of breath that would resolve with rest. Yesterday, late morning, she was lying in bed, and felt tachy palpitations. She had associated weak feeling in both her arms, and also developed some pressure discomfort that extended up both sides of her neck into her head. She was taken to the emergency room by ambulance. She was found to be in atrial fibrillation with rapid ventricular rate. She was given intravenous Cardizem and subsequently converted back to sinus rhythm. Her chest symptoms resolved. Her bilateral arm weakness and headache also resolved. She has previous negative noninvasive cardiac workup performed November of 2018 including echocardiography and Lexiscan myocardial perfusion study. She reports compliance with her sotalol 80 mg which she takes twice a day. She does not use alcohol. She has continued on anticoagulation. PAST MEDICAL HISTORY: 1. Paroxysmal atrial fibrillation. 2. Hypertensive cardiovascular disease with left ventricular diastolic dysfunction. 3. Obesity. PAST SURGICAL HISTORY: Appendectomy, tonsillectomy, and D and C. ALLERGIES: She has no known drug allergies. MEDICATIONS PRIOR TO ADMISSION: As listed. SOCIAL HISTORY: She is . 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 She smokes 1 to 2 cigarettes per day. She does not use alcohol. FAMILY HISTORY: Noncontributory beyond history of present illness. REVIEW OF SYSTEMS: Pulmonary: Noncontributory beyond history of present illness. Gastrointestinal: Noncontributory beyond history of present illness. Constitutional: Noncontributory beyond history of present illness. Remainder of Review of Systems negative/noncontributory beyond history of present illness with 14 total systems reviewed. PHYSICAL EXAMINATION: Reveals an obese middle-aged white female in no distress.Vital signs: Blood pressure 136/72, heart rate 82 and regular. HEENT: Extraocular movements intact. Mucous membranes moist. Neck: Supple without jugular venous distention. No carotid bruits. Chest: Clear to auscultation. Cardiac: Exam reveals a regular rate and rhythm without appreciable murmur or gallop. Abdomen: Soft. Bowel sounds are normal. Extremities: Without edema. Neurologic: Reveals her to be alert and fully oriented. Speech is fluent. She moves all 4 extremities equally well. Skin: Warm and dry. Psychiatric: Reveals her mood to be appropriate. PERTINENT DATA: Twelve lead EKG on admission demonstrates atrial fibrillation with rapid ventricular rate. Twelve lead EKG currently shows normal sinus rhythm. LABORATORY DATA: Sodium 141, potassium 3.9, chloride 103, carbon dioxide 28, BUN 13, creatinine 0.9. Glucose 81, magnesium 1.6. Pro B-natriuretic peptide level 49. Troponin TI sensitivity SA 14, TSH 3.3. White blood cell count 7.78, hematocrit 46.3, hemoglobin 14.6, and platelet count 201,000. cc: Miguel France MD
[2019-10-15] MEDS: BETAPACE PO SCH (20:33)
--- NOTE | 2019-10-16 07:29 | EKG Report ---
Test Performed on : 10/16/2019 07:08:28 AM Test Reason : afib Blood Pressure : / mmHG Vent. Rate : 065 BPM Atrial Rate : 065 BPM P-R Int : 170 ms QRS Dur : 076 ms QT Int : 454 ms P-R-T Axes : 049 -13 079 degrees QTc Int : 472 ms Normal sinus rhythm. Septal infarct (cited on or before 03-AUG-2019) Abnormal ECG When compared with ECG of 15-OCT-2019 11:44, (Unconfirmed) Nonspecific T wave abnormality, improved in Lateral leads Confirmed by Chaitanya PACHECO, Ayan Bernard ([id number]) on 10/16/2019 12:24:08 PM
[2019-10-16 07:35] LABS: AGAP 11; BUN 15 mg/dL (8-22); CALCIUM 9.1 mg/dL (8.8-10.2); CHLORIDE 102 mmol/L (98-107); COSMO 275; CREATININE 0.9 mg/dL (0.5-0.9); ESTIMATED GFR > 60; GLUCOSE 77 mg/dL (70-104); POTASSIUM 3.9 mmol/L (3.5-5.1); SODIUM 138 mmol/L (136-145); TCO2 25 mmol/L (25-35)
[2019-10-16] MEDS: CARDIZEM CD PO SCH (08:10)
[2019-10-16] MEDS: BETAPACE PO SCH (08:10)
[2019-10-16] MEDS: ALDACTONE PO SCH (08:11)
[2019-10-16 11:39] VITALS: BP 144/56
--- NOTE | 2019-10-17 18:10 | DISCHARGE SUMMARY ---
ADMISSION DATE: 10/14/2019 DISCHARGE DATE: 10/16/2019 DISPOSITION: Home. FOLLOWUP: Dr. Santiago. CONSULTATIONS DURING THIS ADMISSION: Cardiology was consulted. The patient was seen by Dr. France. INVASIVE PROCEDURES DONE DURING THIS ADMISSION.: None. IMAGING STUDIES OF SIGNIFICANCE: 1. A chest x-ray initially reported a mild pulmonary edema. 2. Echocardiogram showed an ejection fraction of 65% with mild left ventricular hypertrophy. 3. Initial EKG - She was in atrial fibrillation/RVR. 4. Repeat EKG this morning showed normal sinus rhythm. DIAGNOSES AT THE TIME OF DISCHARGE: 1. Atrial fibrillation with rapid ventricular response on presentation, improved. 2. Pulmonary edema secondary to diastolic heart failure from tachyarrhythmias. 3. Tobacco use and abuse. Patient has been counseled. 4. Morbid obesity with BMI of 34.5. Weight loss advised. 5. Mild left ventricular hypertrophy, presumably from hypertensive heart disease or from tachyarrhythmias. 6. Escherichia coli urinary tract infection. DISCHARGE MEDICATIONS: Spironolactone 12.5 p.o. daily, Cardizem 120 p.o. daily, Xarelto 20 mg p.o. with supper, Sotalol 120 b.i.d., Cephalexin 250 b.i.d. ADMISSION DIAGNOSIS: Palpitations and shortness of breath. HISTORY OF PRESENTING COMPLAINT: Ms. Dobson is a 58-year-old female who is known to have atrial fibrillation. She presented to the emergency department because of pressure in the chest associated with palpitations. She was found to be in atrial fibrillation/RVR with a rate of about 134. She was given a dose of Cardizem, which did not improve it, so she was subsequently put on Cardizem. Shortly after she converted to normal sinus rhythm and was admitted for further medical care. HOSPITAL COURSE: Ms. Dobson was admitted to [facility] under telemonitoring. Chest x-ray did show some congestion, so she was given Lasix, and a consult was placed for Cardiology. The patient was seen by Dr. France, who recommended to increase her sotalol, continue with the Cardizem, and observe her. During the hospital course Ms. Dobson continued to be in sinus rhythm with normal rate. Her latest EKG did not show any acute abnormalities. Her QT continues to be mildly prolonged, but no changes. This morning Ms. Dobson refers to be doing well, completely asymptomatic. Blood pressure is 144/56, pulse of 62, respirations 17, temperature 97.5. Physical exam for the most part is unremarkable. She does not have any CBC this morning, but her chemistry is completely normal. We think Ms. Dobson is clinically stable for discharge. She is going to follow up with Dr. Santiago, who is her call center trainer, for outpatient follow-up. DISCHARGE INSTRUCTIONS: All the discharge instructions have been discussed with her. We stressed the need for tobacco cessation as well as weight management. Ms. Dobson voiced understanding. TIME SPENT FOR DISCHARGE: Thirty-five minutes. cc: MD Anatoliy Zarco MD
== END 2019-10-16 14:32 | disposition home or self-care (01) | DRG 309 ==
LOC: SUPCPDRO → ED 13:48 → SUATTDRO 13:49 → EDIPHOLD 13:49 → 2N 18:09
PROVIDERS: ATTEND Internal Medicine